=== PATIENT | female | born 1940 | race Two or more races ===

== ENCOUNTER → 2022-05-14 09:45 | Outpatient (BNVA) | payer OTHER, SELFPAY | PROVIDERS: PCP Internal Medicine; Visit Provider Internal Medicine Rheumatology | DX: M05.9 Rheumatoid arthritis with rheumatoid factor, unspecified (principal); M81.0 Age-related osteoporosis without current pathological fracture; J84.9 Interstitial pulmonary disease, unspecified; Z79.60 Long term (current) use of unspecified immunomodulators and immunosuppressants | CPT/HCPCS: 99212 ==

== ENCOUNTER 2022-05-14 11:25 | Outpatient (REF) | payer OTHER, SELFPAY ==
[2022-05-14 14:06] LABS: MANUAL DIFF FLAG NO
[2022-05-14 14:27] LABS: Basophils Percent Auto 0.2 % (0-2); Eosinophils Absolute Auto 0.1 X10*3/uL (0.0-0.4); Hemoglobin 11.2 g/dl (12.0-16.0); Imm Gran Abs Auto 0.01 X10*3/uL (0.00-0.03); Imm Gran Pct Auto 0.2 % (0.0-0.4); Lymphocytes Absolute Auto 0.7 X10*3/uL (1.2-4.9); Lymphocytes Percent Auto 17.7 % (20-40); Mean Corpuscular HGB Conc 31.1 g/dl (31.0-35.0); Mean Corpuscular Hemoglobin 29.6 pg (27.0-33.0); Mean Corpuscular Volume 95.2 fL (80.0-98.0); Monocytes Absolute Auto 0.3 X10*3/uL (0.1-1.2); Monocytes Percent Auto 6.6 % (2-11); Neutrophils Percent Auto 73.3 % (45-73); Platelet Count 306 X10*3/uL (160-400); Red Blood Count 3.78 X10*6/uL (4.20-5.50); Red Cell Distribution Width 12.8 % (11.0-16.0); White Blood Count 4.1 X10*3/uL (4.8-10.8)
[2022-05-14 14:55] LABS: Alanine Aminotransferase 10 U/L (0-31); Albumin Level 3.9 g/dL (3.5-5.0); Alkaline Phosphatase 57 U/L (39-117); Anion Gap 14 (12-20); Aspartate Amino Transferase 17 U/L (5-31); Bilirubin Total 0.3 mg/dL (0.0-1.0); Blood Urea Nitrogen 18 mg/dL (9-16); C Reactive Protein < 0.10 mg/dL (< or = 0.50); Calcium 9.5 mg/dL (8.4-10.2); Carbon Dioxide 27 mmol/L (22-29); Chloride 107 mmol/L (96-108); Estimated Glomerular Filt Rate 54; Glucose Random 84 mg/dL (60-115); Potassium 5.5 mmol/L (3.3-5.1); Sodium 142 mmol/L (135-145); Total Protein 7.1 g/dL (6.5-8.0)
[2022-05-14 15:06] LABS: Erythrocyte Sedimentation Rate 36 MM/HR (0-20)
[2022-05-17 12:04] LABS: TS Negative Control Passed; TS Panel A 0; TS Panel B 0; TS Positive Control Passed; TSpotTB Negative (Negative)
[2022-05-19 18:23] LABS: Vitamin D 25-OH, D2 <4 ng/mL; Vitamin D 25-OH, D3 37 ng/mL; Vitamin D 25-OH, Total 37 ng/mL (30-100)
== END 2022-05-14 11:26 | disposition home or self-care (01) ==
LOC: HO.10HDL 11:25
PROVIDERS: Visit Provider Internal Medicine Rheumatology
DX: M81.0 Age-related osteoporosis without current pathological fracture (principal); M05.9 Rheumatoid arthritis with rheumatoid factor, unspecified; J84.9 Interstitial pulmonary disease, unspecified; Z79.60 Long term (current) use of unspecified immunomodulators and immunosuppressants
CPT/HCPCS: 36415; 80053; 82306; 85025; 85652; 86140; 86481

== ENCOUNTER 2022-05-21 13:37 | Outpatient (REF) | payer OTHER, SELFPAY ==
--- NOTE | ~2022-05-21 | MM_ITS ---
EXAMINATION: BONE DENSITOMETRY CLINICAL INDICATION: Osteoporosis. COMPARISON: None (current study represents initial baseline exam). TECHNIQUE: Using a [employer] DXA System (software version: 13.1) manufactured by [employer], dual-energy x-ray absorptiometry was performed of the lumbar spine and left hip. The images are of good technical quality. Summary results are attached. FINDINGS: AP SPINE L1-L2 (excluding L3 and L4): The data of L1-L4 has been changed to exclude the L3 and L4 vertebral bodies, because degenerative changes at these levels may cause overestimation of lumbar spine density. BMD 0.937 g/cm2, Z-score 0.5, T-score -1.9, osteopenia. LEFT FEMUR, NECK: BMD 0.548 g/cm2, Z-score -0.9, T-score -3.5, osteoporosis. LEFT FEMUR, TOTAL: BMD 0.634 g/cm2, Z-score -0.5, T-score -3.0, osteoporosis. IDENTIFIED RISK FACTORS: Early menopause, height loss, hysterectomy, osteoporosis, rheumatoid arthritis, secondary osteoporosis. HISTORY OF FRACTURE: None listed. MEDICATIONS: Calcium, vitamin D. MM/XR DEXA axial skeleton IMPRESSION: 1. DIAGNOSIS: Osteoporosis based on the lowest T-score value of -3.5 in the lumbar spine applying World Health Organization criteria. 2. 10-YEAR FRACTURE RISK PREDICTION, FRAX: According to the guidelines, FRAX calculation should only be performed on patients in the osteopenia bone density category. Therefore, FRAX was not performed on this patient. 3. Treatment Recommendations: NOF guidelines recommend consideration for treatment in postmenopausal women and men age 50 and older presenting with the following: -A hip or vertebral (clinical or morphometric) fracture. -T-score less than or equal to -2.5 at the femoral neck or spine after appropriate evaluation to exclude secondary causes. -Low bone mass at the hip or spine and a 10-year fracture probability by FRAX of greater than or equal to 3% for hip fracture or greater than or equal to 20% for major osteoporotic fracture based on the [place] adapted WHO algorithm. 4. Other Recommendations: All treatment decisions require clinical judgment and consideration of individual patient factors, including patient preferences, comorbidities, previous drug use, risk factors not captured in the FRAX model (e.g. frailty, falls, vitamin D deficiency, increased bone turnover, interval significant decline in bone density) and possible under or overestimation of fracture risk by FRAX. Additional medical evaluation for secondary cause of low bone mineral density may be appropriate. FUTURE SCAN RECOMMENDATION: People with diagnosed cases of osteoporosis or at high risk for fracture should have regular bone mineral density tests. For patients eligible for Medicare, routine testing is allowed once every 2 years. The testing frequency can be increased to one year for patients who have rapidly progressing disease, those who are receiving or discontinuing medical therapy to restore bone mass, or have additional risk factors.
== END 2022-05-21 13:38 | disposition home or self-care (01) ==
LOC: HO.MAMMO 13:37
PROVIDERS: PCP Internal Medicine; Visit Provider Internal Medicine Rheumatology
DX: Z13.820 Encounter for screening for osteoporosis (principal); M05.9 Rheumatoid arthritis with rheumatoid factor, unspecified; M81.0 Age-related osteoporosis without current pathological fracture; Z78.0 Asymptomatic menopausal state
CPT/HCPCS: 77080

== ENCOUNTER 2022-06-29 11:13 | Outpatient (REF) | payer OTHER, SELFPAY ==
[2022-06-29 14:03] LABS: Anion Gap 14 (12-20); Blood Urea Nitrogen 21 mg/dL (9-16); Calcium 9.3 mg/dL (8.4-10.2); Carbon Dioxide 25 mmol/L (22-29); Chloride 105 mmol/L (96-108); Estimated Glomerular Filt Rate 51; Glucose Random 79 mg/dL (60-115); Sodium 139 mmol/L (135-145)
== END 2022-06-29 11:14 | disposition home or self-care (01) ==
LOC: HO.10HDL 11:13
PROVIDERS: Visit Provider Internal Medicine Rheumatology
DX: M81.0 Age-related osteoporosis without current pathological fracture (principal)
CPT/HCPCS: 36415; 80048

== ENCOUNTER → 2022-07-02 10:35 | Outpatient (BNVA) | payer OTHER, SELFPAY | PROVIDERS: PCP Internal Medicine; Visit Provider Internal Medicine Rheumatology | DX: M81.0 Age-related osteoporosis without current pathological fracture (principal) | CPT/HCPCS: 96372 ==

== ENCOUNTER → 2022-07-13 11:12 | Outpatient (BNVA) | payer OTHER, SELFPAY | PROVIDERS: PCP Internal Medicine; Visit Provider Internal Medicine Rheumatology | DX: M81.0 Age-related osteoporosis without current pathological fracture (principal); M05.9 Rheumatoid arthritis with rheumatoid factor, unspecified; J84.9 Interstitial pulmonary disease, unspecified; Z79.60 Long term (current) use of unspecified immunomodulators and immunosuppressants | CPT/HCPCS: 99212 ==

== ENCOUNTER 2022-11-25 10:36 | Outpatient (AMB) | payer OTHER, SELFPAY ==
--- NOTE | 2022-11-25 10:40 | MHC.OFFVIS ---
Intake Vital Signs 11/25/22 10:53 Height 4 ft 9 in Weight 102 lb 15.294 oz BMI 22.3 BP 120/70 Blood Pressure Location Lt brachial Position Sitting Pulse 81 Pulse Source Pulse Oximeter Temp 97.9 F Temp Source Skin Pulse Oximetry (%) 98 Oxygen Delivery Method Room Air Intake Visit Reasons: ra, op Intake Note: Here to follow up on RA. Calcium discontinued by PCP. Unsure why. Has some questions today. 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 Her nephew accompanies her; the who usually accompanies her has had worsening health with apparently vascular disease causing loss of vision in one eye and also loss of a toe. She has been working hard taking care of him as he is wheelchair-bound. Patient says she is doing okay. There is occasional left wrist pain on the ulnar aspect of the left wrist. This is usually worse with more physical activity. She does not seem to have other pains presently. She remains on Humir 40 mg once every 2 weeks. She is on ibuprofen idhp-nax-cagnapp 200 mg twice a day but was told to stop it because of abnormalities in kidney function. She tolerated the Prolia injection given for her osteoporosis last June so would be due again after January 01. She remains on vitamin-D. [facility] Medical History (Updated 07/13/22 @ 11:28 by JOSEP Hoffman) Cataract fragments in both eyes following surgery Hypertension ILD (interstitial lung disease) Mixed hyperlipidemia Senile osteoporosis Seropositive rheumatoid arthritis Surgical History H/O sigmoidoscopy H/O vaginal hysterectomy History of carpal tunnel release Hx of colonoscopy Family History Mother No problems noted. Father No problems noted. Social History Household Members: Spouse Alcohol intake: current Alcohol intake frequency: does not drink Patient Tobacco Use Status: Never used Tobacco Review of Systems Const Details: Negative for appetite change, weight change, fever, chills, malaise and fatigue Eyes Details: Negative for vision change, dry eyes,headaches and dizziness ENT Details: Negative for hearing change, tinnitus, oral ulcer, nose bleeds and oral dryness. Card Details: Negative chest pain, edema and syncope Resp Details: Negative for SOB, cough and wheezing GI Details: Negative indigestion/heartburn, nausea, abdominal pain, bowel changes, diarrhea, constipation and bloody stool. Narendra/Lymph Details: Negative for excessive bruising or bleeding. Physical Exam Vital Signs: Last Vital Signs Temp 97.9 F 11/25/22 10:53 Pulse 81 11/25/22 10:53 BP 120/70 11/25/22 10:53 Pulse Ox 98 11/25/22 10:53 Oxygen Delivery Method Room Air 11/25/22 10:53 BMI result Body Mass Index 22.3 APPEARANCE: Patient in no acute distress EYES no redness, pupils equal and reactive to light, eyelids normal EXTREMITIES: No edema, no calf tenderness, normal peripheral pulses. SKIN: No inflammatory or neoplastic lesions. Normal color and turgor JOINT EXAM: ?? LUNG:? Clear to percussion; there was some dry?inspiratory crackles heard at the left base.? EXTREMITIES:? No edema, no calf tenderness, normal peripheral pulses. JOINT EXAM:? Cervical Spine:? Lateral flexion limited at 15 in rotation at 45 degrees.? No pain with motion.? No tenderness. Thoracic Spine:.? No scoliosis.? No tenderness on palpation. Lumbar Spine:.? Alignment normal.? Full range of motion without pain, no tenderness. Chest Wall:.? No tenderness, swelling, increased warmth or erythema. Hands:? Right:? There is mild swelling across all of the MCP joints but none of them are tender.? There is a slight flexion deformity at the MCPs.? There is no flexor tendon triggering or tenderness.? There is significant boutonniere deformity at the thumb IP joint with some slight swelling but no tenderness.? There is some slight thickening and flexion deformity at the 2nd DIP.? Active extension at that joint does not seem to be possible.? There is no thenar atrophy or sensory loss.? Left:? There is mild swelling of the 1st 3 MCP joints.? The MCP joints are not tender today.? There is some degree of boutonniere deformity at the thumb IP without tenderness.? No flexor tendon triggering, thenar atrophy or sensory loss. Wrists:? Right:? Mild pain with flexion extension at 60 degrees with some slight tenderness.? Minimal soft tissue swelling.? Left:? Slight discomfort with flexion extension at 75 degrees with minimal tenderness on the ulnar aspect. There may be some slight thickening over the flexor carpi ulnaris tendon. No redness or warmth. Elbows:. Normal pain-free range of motion without tenderness, swelling, increased warmth or erythema. Shoulders:.?? Full range of motion without pain. No tenderness, weakness, swelling, increased warmth or erythema. Hips:.? Full range of motion without pain. Hip bursa:.? No tenderness. Knees:? Right:? Mild patellofemoral crepitus.? Normal pain-free range of motion.? She has slight medial tenderness but no redness or effusion.? Left:?? Normal pain-free range of motion with mild patellofemoral crepitus but no effusion or tenderness.? No soft tissue swelling, increased warmth or erythema.? Ankles:.? Normal pain-free range of motion without tenderness, swelling, increased warmth or erythema. Feet:.? Normal pain-free range of motion without tenderness, swelling, increased warmth or erythema. Tender points:? No tenderness to digital palpation at the occiput, trapezius, second rib, lateral epicondyle, knees, greater trochanter and gluteal area bilaterally. Results Reviewed Results Reviewed: Laboratory Tests 05/14/22 05/14/22 06/29/22 11:30 11:30 11:15 WBC 4.1 L Hgb 11.2 L ESR 36 H Creatinine 1.03 Lab work from [facility] February 2020: White count 3.9, hemoglobin 12.7 09/17/2021: White count 3.1, hemoglobin 12.1 11/02/2022: White count 4.2, hemoglobin 11.3, creatinine 1.0, estimated GFR 56, albumin 3.7, 25 hydroxy vitamin-D 46, calcium 9.0 Assessment & Plan Assessment & Plan (1) Long-term use of immunosuppressant medication: Code(s): Z79.60 - [employer] (current) use of unspecified immunomodulators and immunosuppressants (2) Senile osteoporosis: Comment: INTOLERANT OF Fosamax and Actonel: bone pain Miacalcin: nosebleeds and dizzyness On vitamin D supplements July 2018 DEXA showed slight improvement in the LS spine density and slight but not significant worsening at the hip. T-scores: -2.9 at hip, -1.2 at LS spine 2022 DEXA hip -3.0, LS spine -1.9, L fem neck -3.5 07/02/22: Prolia injection Code(s): M81.0 - Age-related osteoporosis without current pathological fracture (3) Seropositive rheumatoid arthritis: Comment: SERO POS ccp POSITIVE On methtrexate since 2005; Enbrel added 02/26; methotrexate stopped 12/28 due to leukopenia. Enbrel stopped 12/29 - remission. Enbrel restarted 05/30 for return of synovitis from RA Humira in place of Enbrel 08/07 Code(s): M05.9 - Rheumatoid arthritis with rheumatoid factor, unspecified Plan This patient with RA seems to have good control of active synovitis with Humira. There is some slight swelling in the MCP joints in the left wrist with minimal tenderness. The joints are nontender in the swelling is chronic. She has always had some degree of leukopenia. The last blood work at [facility] did suggest mild depression of her hemoglobin. We will recheck that again before she has her Prolia injection next month. Before that visit also we will recheck her kidney function and calcium levels. The vitamin-D was adequate. She will continue with the above dose of Humira and we will arrange for the Prolia injection after January 01 which would be a year 2nd injection. We will aim for follow-up in about 3 months. Orders: Orders Basic Metabolic Panel Today M05.9 - Rheumatoid arthritis with rheumatoid factor, unspecified, Z79.60 - [employer] (current) use of unspecified immunomodulators and immunosuppressants C Reactive Protein Today M05.9 - Rheumatoid arthritis with rheumatoid factor, unspecified, Z79.60 - [employer] (current) use of unspecified immunomodulators and immunosuppressants Complete Blood Count Auto Diff Today M05.9 - Rheumatoid arthritis with rheumatoid factor, unspecified, Z79.60 - [employer] (current) use of unspecified immunomodulators and immunosuppressants Erythrocyte Sedimentation Rate Today M05.9 - Rheumatoid arthritis with rheumatoid factor, unspecified, Z79.60 - [employer] (current) use of unspecified immunomodulators and immunosuppressants Coding Level of Care Code Est Pt Level 3 (27936) Diagnoses Long-term use of immunosuppressant medication Z79.60 Senile osteoporosis M81.0 Seropositive rheumatoid arthritis M05.9
[2022-11-25 10:53] VITALS: BP 120/70; PULSE 81; TEMP 36.6; O2SAT 98; BMI 22.3
== END 2022-11-25 11:34 | disposition home or self-care (01) ==
PROVIDERS: PCP Internal Medicine; Visit Provider Internal Medicine Rheumatology
DX: M05.79 Rheumatoid arthritis with rheumatoid factor of multiple sites without organ or systems involvement (principal); Z79.60 Long term (current) use of unspecified immunomodulators and immunosuppressants; M81.0 Age-related osteoporosis without current pathological fracture
CPT/HCPCS: 99213

== ENCOUNTER → 2022-11-25 10:36 | Outpatient (BNVA) | payer OTHER, SELFPAY | PROVIDERS: PCP Internal Medicine; Visit Provider Internal Medicine Rheumatology | DX: M05.9 Rheumatoid arthritis with rheumatoid factor, unspecified (principal); M81.0 Age-related osteoporosis without current pathological fracture; Z79.60 Long term (current) use of unspecified immunomodulators and immunosuppressants | CPT/HCPCS: 99212 ==

== ENCOUNTER 2022-12-29 11:51 | Outpatient (REF) | payer OTHER, SELFPAY | END 2022-12-29 11:52 | disposition home or self-care (01) | LOC: HO.10HDL 11:51 | PROVIDERS: Visit Provider Internal Medicine Rheumatology | DX: M05.9 Rheumatoid arthritis with rheumatoid factor, unspecified (principal); Z79.60 Long term (current) use of unspecified immunomodulators and immunosuppressants | CPT/HCPCS: 36415; 80048; 85025; 85652; 86140 ==

== ENCOUNTER 2023-01-06 08:49 | Outpatient (AMB) | payer OTHER, SELFPAY ==
--- NOTE | 2023-01-06 11:33 | AM.OFFVISNUR ---
Intake Vital Signs 01/06/23 11:34 BP 138/76 Blood Pressure Location Rt brachial Position Sitting Respiration 16 Pulse 77 Pulse Source Pulse Oximeter Intake Visit Reasons: Osteoporosis/prolia inj Accompanied by: Self / Same As Patient Allergies alendronate sodium [From Fosamax] Allergy (Intermediate, Verified 01/06/23 11:36) myalgia/joint pain pravastatin Allergy (Intermediate, Verified 01/06/23 11:36) back pain risedronate sodium [From Actonel] Allergy (Intermediate, Verified 01/06/23 11:36) myalgia/joint pain Medication List - Last Reconciled 01/06/23 by Hayley Golden RN adalimumab (Humira(CF) Pen) 40 mg (0.4 mL) subcut Q2W 56 days cholecalciferol (vitamin D3) 25 mcg PO DAILY denosumab 60 mg subcut [id number] lisinopril 15 mg PO DAILY polyethylene glycol 400 1% 1 drp ophthalmic (eye) DAILY PRN simvastatin 5 mg PO BEDTIME Nursing Note Patient here for continued Prolia therapy. Patient denied any new medications or allergies. Patient gave verbal consent to administer Prolia. I administered Prolia on left upper arm. Patient tolerated injection well. Office Meds Prolia 60 mg/mL subcutaneous syringe Performing Provider: Matt Reyez MD Performing Location[place] [facility] Administered by: Hayley Golden RN on 01/06/23 11:39 Dose Route Admin Location Dispensed Lot Number Expiration Date NDC [employer] 60 mg subcut left arm 1 mL [id number] 05/19/25 58031-587-35 AMGEN Coding Level of Care Code Procedure Only Assessment & Plan Assessment & Plan Orders: Orders AMB Denosumab Injection Patient Supplied Today M81.0 - Age-related osteoporosis without current pathological fracture
[2023-01-06 11:34] VITALS: BP 138/76; PULSE 77; RESP 16
== END 2023-01-06 09:52 | disposition home or self-care (01) ==
PROVIDERS: PCP Internal Medicine
DX: M81.0 Age-related osteoporosis without current pathological fracture (principal)

== ENCOUNTER → 2023-01-06 08:49 | Outpatient (BNVA) | payer OTHER, SELFPAY | PROVIDERS: PCP Internal Medicine | DX: M81.0 Age-related osteoporosis without current pathological fracture (principal) | CPT/HCPCS: 96372; J0897 ==

== ENCOUNTER 2023-02-23 09:14 | Outpatient (AMB) | payer OTHER, SELFPAY ==
[2023-02-23 09:19] VITALS: BP 124/72; PULSE 82; TEMP 36.1; O2SAT 97; BMI 22.3
--- NOTE | 2023-02-23 09:19 | MHC.OFFVIS ---
Intake Vital Signs 02/23/23 09:19 Height 4 ft 9 in Weight 103 lb 2.821 oz BMI 22.3 BP 124/72 Blood Pressure Location Lt brachial Position Sitting Pulse 82 Pulse Source Pulse Oximeter Temp 97 F Temp Source Skin Pulse Oximetry (%) 97 Oxygen Delivery Method Room Air Intake Visit Reasons: RA Intake Note: Patient presents today to follow up on RA. Last seen by Dr. Reyez on 11/25/22. 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 Accompanied by: Self / Same As Patient Allergies alendronate sodium [From Fosamax] Allergy (Intermediate, Verified 02/23/23 09:19) myalgia/joint pain pravastatin Allergy (Intermediate, Verified 02/23/23 09:19) back pain risedronate sodium [From Actonel] Allergy (Intermediate, Verified 02/23/23 09:19) myalgia/joint pain Medication List - Last Reconciled 02/23/23 by Matt Reyez MD adalimumab (Humira(CF) Pen) 40 mg (0.4 mL) subcut Q2W 56 days cholecalciferol (vitamin D3) 25 mcg PO DAILY denosumab 60 mg subcut [id number] lisinopril 15 mg PO DAILY polyethylene glycol 400 1% 1 drp ophthalmic (eye) DAILY PRN simvastatin 5 mg PO BEDTIME HPI HPI Comments History of Present Illness Details The patient returns with her niece for evaluation of her rheumatoid arthritis and osteoporosis. She relates that her , it sounds like from renal failure and associated vascular disease, at the end of December. She has been doing okay she says with the assistance of her niece and nephew. She remains on only ibuprofen at this point. Apparently she ran out of the Humira as there was a delivery problem. We are not exactly sure why that happened or what happened. She does not notice too much increase in symptoms although the hands and shoulders are painful at times. She has also been receiving every 6 months Prolia. She last got an injection in December. There were no side effects with that. She has remained on vitamin-D but was told to stop the ibuprofen and calcium by her primary care office. She has a history of ILD thought to be related to rheumatoid arthritis but denies any cough, exertional dyspnea or chest pain. A [facility] Medical History (Updated 02/22/23 @ 20:31 by Matt Reyez MD) Cataract fragments in both eyes following surgery Senile osteoporosis Seropositive rheumatoid arthritis Mixed hyperlipidemia ILD (interstitial lung disease) Hypertension Surgical History H/O sigmoidoscopy H/O vaginal hysterectomy Hx of colonoscopy History of carpal tunnel release Family History Mother No problems noted. Father No problems noted. Social History Household Members: Spouse Alcohol intake: current Alcohol intake frequency: does not drink Patient Tobacco Use Status: Never used Tobacco Review of Systems Const Details: Negative for appetite change, weight change, fever, chills, malaise and fatigue Eyes Details: Negative for vision change, dry eyes,headaches and dizziness ENT Details: Negative for hearing change, tinnitus, oral ulcer, nose bleeds and oral dryness. Card Details: Negative chest pain, edema and syncope Resp Details: Negative for SOB, cough and wheezing GI Details: Negative indigestion/heartburn, nausea, abdominal pain, bowel changes, diarrhea, constipation and bloody stool. Psych Details: Some grief with recent of her . Negative for anxiety, depression Narendra/Lymph Details: Negative for excessive bruising or bleeding. Physical Exam Vital Signs: Last Vital Signs Temp 97 F 02/23/23 09:19 Pulse 82 02/23/23 09:19 BP 124/72 02/23/23 09:19 Pulse Ox 97 02/23/23 09:19 Oxygen Delivery Method Room Air 02/23/23 09:19 BMI result Body Mass Index 22.3 APPEARANCE: Patient in no acute distress EYES no redness, pupils equal and reactive to light, eyelids normal THROAT: Oral mucosa moist, no ulcerations NECK: No thyromegaly or masses, no adenopathy, trachea midline. HEART: Regulrar rhythm, S1-S2 heard, no murmurs, rubs or gallops. LUNG: Clear to percussion; there are some dry, inspiratory crackles heard at the bases bilaterally. ABD: Normal bowel sounds, no organomegaly, masses or tenderness. EXTREMITIES: No edema, no calf tenderness, normal peripheral pulses. JOINT EXAM: Cervical Spine:? Lateral flexion limited at 15 in rotation at 45 degrees.? No pain with motion.? No tenderness. Thoracic Spine:.? No scoliosis.? No tenderness on palpation. Lumbar Spine:.? Alignment normal.? Full range of motion without pain, no tenderness. Chest Wall:.? No tenderness, swelling, increased warmth or erythema. Hands:? Right:? There is mild swelling across all of the MCP joints but none of them are tender.? There is a slight flexion deformity at the MCPs.? There is no flexor tendon triggering or tenderness.? There is significant boutonniere deformity at the thumb IP joint with some slight swelling but no tenderness.? There is some slight thickening and flexion deformity at the 2nd DIP.? Active extension at that joint does not seem to be possible.? There is no thenar atrophy or sensory loss.? Left:? There is mild swelling of the 1st 3 MCP joints.? The MCP joints are not tender today.? There is some degree of boutonniere deformity at the thumb IP without tenderness.? No flexor tendon triggering, thenar atrophy or sensory loss. Wrists:? Right:? Mild pain with flexion extension at 60 degrees with some slight tenderness.? Minimal soft tissue swelling.? Left:? Slight discomfort with flexion extension at 75 degrees with minimal tenderness on the ulnar aspect. There may be some slight thickening over the flexor carpi ulnaris tendon. No redness or warmth. Elbows:. Normal pain-free range of motion without tenderness, swelling, increased warmth or erythema. Shoulders:.?? Full range of motion without pain. No tenderness, weakness, swelling, increased warmth or erythema. Hips:.? Full range of motion without pain. Hip bursa:.? No tenderness. Knees:? Right:? Mild patellofemoral crepitus.? Normal pain-free range of motion.? She has slight medial tenderness but no redness or effusion.? Left:?? Normal pain-free range of motion with mild patellofemoral crepitus but no effusion or tenderness.? No soft tissue swelling, increased warmth or erythema.? Ankles:? Normal pain-free range of motion without tenderness, swelling, increased warmth or erythema. Feet:? Normal pain-free range of motion without tenderness, swelling, increased warmth or erythema. Tender points:? No tenderness to digital palpation at the occiput, trapezius, second rib, lateral epicondyle, knees, greater trochanter and gluteal area bilaterally. Results Reviewed Results Reviewed: Laboratory Tests 05/14/22 12/29/22 12/29/22 11:30 12:00 12:00 WBC 4.1 L Hgb 10.6 L ESR 44 H Creatinine 0.77 C-Reactive Protein < 0.10 25-OH Vitamin D Total 37 10/21/2022 lab work from [place]: White count 4.2, hemoglobin 11.3, creatinine 1.0, transaminases normal calcium 9.0, 25 hydroxy D 46. Assessment & Plan Assessment & Plan (1) Senile osteoporosis: Comment: INTOLERANT OF Fosamax and Actonel: bone pain Miacalcin: nosebleeds and dizzyness On vitamin D supplements July 2018 DEXA showed slight improvement in the LS spine density and slight but not significant worsening at the hip. T-scores: -2.9 at hip, -1.2 at LS spine 2022 DEXA hip -3.0, LS spine -1.9, L fem neck -3.5 07/02/22, 01/06/23 Prolia injections Code(s): M81.0 - Age-related osteoporosis without current pathological fracture (2) Long-term use of immunosuppressant medication: Code(s): Z79.60 - rn assessment (current) use of unspecified immunomodulators and immunosuppressants (3) ILD (interstitial lung disease): Comment: October 2016 PFT at [facility]: FEV1 99% normal, FVC 74% normal, TLC 80% normal, diffusing capacity 70% normal: Mild to moderate restrictive lung disease CT showed lower lobe interstitial changes and bronchiectasis repeat PFT 11/10: nl volumes; DLCO 74% Code(s): J84.9 - Interstitial pulmonary disease, unspecified (4) Seropositive rheumatoid arthritis: Comment: SERO POS ccp POSITIVE On methtrexate since 2005; Enbrel added 02/26; methotrexate stopped 12/28 due to leukopenia. Enbrel stopped 12/29 - remission. Enbrel restarted 05/30 for return of synovitis from RA Humira in place of Enbrel 08/07 Code(s): M05.9 - Rheumatoid arthritis with rheumatoid factor, unspecified Plan The patient's joints show some deformity and evidence of prior active RA. Presently the tenderness is minimal. She has been off the Humira now for almost 2 months. I still think she should go back on it given the prolonged course of synovitis she had in the past with now some flexion deformities. I will send in a new prescription to her pharmacy for the Humira. We will ask her to stop the ibuprofen given that she occasionally runs an elevated creatinine and at her age that could signify the beginning of some CKD. I think she should take acetaminophen if needed up to 1 g t.i.d. for pain. There is a history of ILD although she has some fine rales but no symptoms at present. The last PFTs from about a year and half ago looked okay with only a slight decrease in diffusion capacity. That might need to be repeated in in the next year. A for return visit is recommended for June when she would be due for her Prolia injection. The family is going away for May so will get lab work before she comes in at that point to assess her suitability for another Prolia injection and to assess her inflammatory markers. Orders: Orders Erythrocyte Sedimentation Rate Today M05.9 - Rheumatoid arthritis with rheumatoid factor, unspecified, M81.0 - Age-related osteoporosis without current pathological fracture C Reactive Protein Today M05.9 - Rheumatoid arthritis with rheumatoid factor, unspecified, M81.0 - Age-related osteoporosis without current pathological fracture Vitamin D 25-OH (D2 and D3) Today M05.9 - Rheumatoid arthritis with rheumatoid factor, unspecified, M81.0 - Age-related osteoporosis without current pathological fracture Basic Metabolic Panel Today M05.9 - Rheumatoid arthritis with rheumatoid factor, unspecified, M81.0 - Age-related osteoporosis without current pathological fracture Medications: Refilled adalimumab (Humira(CF) Pen) 40 mg (0.4 mL) subcut Q2W 1.6 ea 3RF 56 days M05.9 - Rheumatoid arthritis with rheumatoid factor, unspecified Coding Level of Care Code Est Pt Level 4 (66307) Diagnoses Senile osteoporosis M81.0 Long-term use of immunosuppressant medication Z79.60 ILD (interstitial lung disease) J84.9 Seropositive rheumatoid arthritis M05.9
== END 2023-02-23 10:02 | disposition home or self-care (01) ==
PROVIDERS: PCP Internal Medicine; Visit Provider Internal Medicine Rheumatology
DX: M05.79 Rheumatoid arthritis with rheumatoid factor of multiple sites without organ or systems involvement (principal); M81.0 Age-related osteoporosis without current pathological fracture; Z79.60 Long term (current) use of unspecified immunomodulators and immunosuppressants; J84.9 Interstitial pulmonary disease, unspecified
CPT/HCPCS: 99214

== ENCOUNTER → 2023-02-23 09:14 | Outpatient (BNVA) | payer OTHER, SELFPAY | PROVIDERS: PCP Internal Medicine; Visit Provider Internal Medicine Rheumatology | DX: M81.0 Age-related osteoporosis without current pathological fracture (principal); M05.9 Rheumatoid arthritis with rheumatoid factor, unspecified; J84.9 Interstitial pulmonary disease, unspecified; Z79.60 Long term (current) use of unspecified immunomodulators and immunosuppressants | CPT/HCPCS: 99212 ==

== ENCOUNTER 2023-07-01 11:40 | Outpatient (REF) | payer OTHER, SELFPAY ==
[2023-07-01 13:10] LABS: Anion Gap 12 (12-20); Blood Urea Nitrogen 9 mg/dL (9-16); C Reactive Protein < 0.04 mg/dL (< or = 0.50); Calcium 9.6 mg/dL (8.4-10.2); Carbon Dioxide 29 mmol/L (22-29); Chloride 103 mmol/L (96-108); Estimated Glomerular Filt Rate > 60; Glucose Random 83 mg/dL (60-115); Potassium 4.6 mmol/L (3.3-5.1); Sodium 139 mmol/L (135-145)
[2023-07-01 13:45] LABS: Erythrocyte Sedimentation Rate 36 MM/HR (0-20)
[2023-07-05 15:53] LABS: Vitamin D 25-OH, D2 <4 ng/mL; Vitamin D 25-OH, D3 30 ng/mL; Vitamin D 25-OH, Total 30 ng/mL (30-100)
== END 2023-07-01 11:41 | disposition home or self-care (01) ==
LOC: HO.LAB 11:40
PROVIDERS: PCP Internal Medicine; Visit Provider Internal Medicine Rheumatology
DX: M81.0 Age-related osteoporosis without current pathological fracture (principal); M05.9 Rheumatoid arthritis with rheumatoid factor, unspecified
CPT/HCPCS: 36415; 80048; 82306; 85652; 86140

== ENCOUNTER 2023-07-06 10:20 | Outpatient (AMB) | payer OTHER, SELFPAY ==
--- NOTE | 2023-07-06 10:27 | A.OFFVIS_ITS ---
Intake Vital Signs 07/06/23 10:28 Height 4 ft 9.4 in Weight 101 lb 6.602 oz BMI 21.6 BP 136/64 Blood Pressure Location Rt brachial Position Sitting Pulse 71 Pulse Source Pulse Oximeter Pulse Oximetry (%) 97 Oxygen Delivery Method Room Air Intake Visit Reasons: ra/ild/op with dr godoy/prolia Intake Note: Patient last seen by Dr Reyez on 02/23/23 presents today for follow up and Prolia injection. Pt was taking calcium and vit D in the past but ran out. Last prescribed by Dr Reyez. She bought Vit D OTC but unsure what calcium dose should be, would like to discuss. Agri Business Agent Required: No Accompanied by: Niece Maggie Allergies alendronate sodium [From Fosamax] Allergy (Intermediate, Verified 07/06/23 10:34) myalgia/joint pain pravastatin Allergy (Intermediate, Verified 07/06/23 10:34) back pain risedronate sodium [From Actonel] Allergy (Intermediate, Verified 07/06/23 10:34) myalgia/joint pain Medication List - Last Reconciled 07/06/23 by Tejal Blackman MD adalimumab (Humira(CF) Pen) 40 mg (0.4 mL) subcut Q2W 56 days calcium carbonate-vitamin D3 600 mg-10 mcg (400 unit) (Calcium with Vitamin D) 1 tab PO TID denosumab 60 mg subcut [id number] lisinopril 15 mg PO DAILY polyethylene glycol 400 1% 1 drp ophthalmic (eye) DAILY PRN simvastatin 5 mg PO BEDTIME HPI HPI Comments History of Present Illness Details 82-year-old female with seropositive def ormity RA/ILD returns for follow-up. She remains on Humira 40 mg every other week. She states that she has been doing fairly well overall. About the same. No changes. Continues to have intermittent pain in her hands, especially the right hand. Some right hand weakness. She denies any cough or shortness of breath. She has lost about 10 lb since some of her 6 months ago. She has been trying to drink more ensure Most recent history by Dr. Reyez 02/2023: The patient returns with her niece for evaluation of her rheumatoid arthritis and osteoporosis. She relates that her , it sounds like from renal failure and associated vascular disease, at the end of December. She has been doing okay she says with the assistance of her niece and nephew. She remains on only ibuprofen at this point. Apparently she ran out of the [facility] as there was a delivery problem. We are not exactly sure why that happened or what happened. She does not notice too much increase in symptoms although the hands and shoulders are painful at times. She has also been receiving every 6 months Prolia. She last got an injection in December. There were no side effects with that. She has remained on vitamin-D but was told to stop the ibuprofen and calcium by her primary care office. She has a history of ILD thought to be related to rheumatoid arthritis but denies any cough, exertional dyspnea or chest pain. A [facility] Medical History Cataract fragments in both eyes following surgery Senile osteoporosis Seropositive rheumatoid arthritis Mixed hyperlipidemia ILD (interstitial lung disease) Hypertension Surgical History H/O sigmoidoscopy H/O vaginal hysterectomy Hx of colonoscopy History of carpal tunnel release Family History Mother No problems noted. Father No problems noted. Social History Household Members: Spouse Alcohol intake: current Alcohol intake frequency: does not drink Patient Tobacco Use Status: Never used Tobacco Review of Systems Const Reports weight loss Musc Reports deformity and Reports arthralgias Physical Exam Vital Signs: Last Vital Signs Pulse 71 07/06/23 10:28 BP 136/64 07/06/23 10:28 Pulse Ox 97 07/06/23 10:28 Oxygen Delivery Method Room Air 07/06/23 10:28 BMI result Body Mass Index 21.6 Const General: cooperative, healthy appearing and comfortable Nutritional Appearance: average body habitus Orientation/consciousness: patient oriented x3 Limitations: no limitations HEENT Head: Yes normocephalic and Yes atraumatic Mouth: moist mucous membranes Resp Effort & Inspection: normal respiratory effort and able to speak in complete sentences Cardio Rate: regular rate Rhythm: regular rhythm Skin General skin exam: no rashes or lesions noted Neuro General: patient oriented x3 Extrem Other: Prominent RA deformities of both hands. Synovial thickening across the MCPs Soft soft tissue swelling on the palmar aspect of left thumb bilateral Z deformity of thumbs There does not seem to be any active synovitis Normal range of motion of shoulders without pain Normal range of motion of both knees without pain Assessment & Plan Assessment & Plan (1) Seropositive rheumatoid arthritis: Comment: SERO POS ccp POSITIVE On methtrexate since 2005; Enbrel added 02/26; methotrexate stopped 12/28 due to leukopenia. Enbrel stopped 12/29 - remission. Enbrel restarted 05/30 for return of synovitis from RA Humira in place of Enbrel 08/07 Code(s): M05.9 - Rheumatoid arthritis with rheumatoid factor, unspecified Plan: This is an 82-year-old female with seropositive deforming RA who presents for follow-up. This is her 1st visit with me. She used to follow-up with Dr. Reyez. Patient is doing well overall on Humira 40 mg every other week with no active synovitis Continue Humira 40 mg every other week Labs before next visit in 6 months (2) ILD (interstitial lung disease): Comment: October 2016 PFT at [facility]: FEV1 99% normal, FVC 74% normal, TLC 80% normal, diffusing capacity 70% normal: Mild to moderate restrictive lung disease CT showed lower lobe interstitial changes and bronchiectasis repeat PFT 11/10: nl volumes; DLCO 74% Code(s): J84.9 - Interstitial pulmonary disease, unspecified Plan: No cardiopulmonary thumbs recently. Will order PFTs to monitor her ILD (3) Senile osteoporosis: Comment: INTOLERANT OF Fosamax and Actonel: bone pain Miacalcin: nosebleeds and dizzyness On vitamin D supplements July 2018 DEXA showed slight improvement in the LS spine density and slight but not significant worsening at the hip. T-scores: -2.9 at hip, -1.2 at LS spine 2022 DEXA hip -3.0, LS spine -1.9, L fem neck -3.5 07/02/22, 01/06/23 Prolia injections Code(s): M81.0 - Age-related osteoporosis without current pathological fracture Plan: Patient will receive Prolia injection in the office today. Repeat Prolia injection 12/2023. Vitamin-D level is 30. Has been taking [id number] vitamin-D but does not know the dose. She also does not consume any dairy. 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 Panel 6 Months M05.9 - Rheumatoid arthritis with rheumatoid factor, unspecified, Z79.60 - marine oil terminal superintendent (current) use of unspecified immunomodulators and immunosuppressants Erythrocyte Sedimentation Rate 6 Months M05.9 - Rheumatoid arthritis with rheumatoid factor, unspecified, Z79.60 - [facility] (current) use of unspecified immunomodulators and immunosuppressants Hepatitis A,B,C Profile 6 Months Z11.59 - Encounter for screening for other viral diseases PFT pulmonary function test Today J84.9 - Interstitial pulmonary disease, unspecified Vitamin D 25-OH (D2 and D3) 6 Months E55.9 - Vitamin D deficiency, unspecified Complete Blood Count Auto Diff 6 Months M05.9 - Rheumatoid arthritis with rheumatoid factor, unspecified, Z79.60 - [facility] (current) use of unspecified immunomodulators and immunosuppressants C Reactive Protein 6 Months M05.9 - Rheumatoid arthritis with rheumatoid factor, unspecified, Z79.60 - [facility] (current) use of unspecified immunomodulators and immunosuppressants T Spot TB 6 Months Z11.7 - Encounter for testing for latent tuberculosis infection Medications: New calcium carbonate-vitamin D3 600 mg-10 mcg (400 unit) (Calcium with Vitamin D) 1 tab PO TID 90 tabs 5RF Refilled adalimumab (Humira(CF) Pen) 40 mg (0.4 mL) subcut Q2W 56 days 1.6 ea 3RF M05.9 - Rheumatoid arthritis with rheumatoid factor, unspecified Coding Level of Care Code Est Pt Level 5 (82948) Diagnoses Seropositive rheumatoid arthritis M05.9 ILD (interstitial lung disease) J84.9 Senile osteoporosis M81.0 Long-term use of immunosuppressant medication Z79.60
[2023-07-06 10:28] VITALS: BP 136/64; PULSE 71; O2SAT 97; BMI 21.6
== END 2023-07-06 11:17 | disposition home or self-care (01) ==
LOC: HO.RHE 10:20
PROVIDERS: PCP Internal Medicine; Visit Provider Student in an Organized Health Care Education/Training Program
DX: M05.79 Rheumatoid arthritis with rheumatoid factor of multiple sites without organ or systems involvement (principal); J84.9 Interstitial pulmonary disease, unspecified; M81.0 Age-related osteoporosis without current pathological fracture; Z79.60 Long term (current) use of unspecified immunomodulators and immunosuppressants
CPT/HCPCS: 99215

== ENCOUNTER → 2023-07-06 10:20 | Outpatient (BNVA) | payer OTHER, SELFPAY | PROVIDERS: PCP Internal Medicine; Visit Provider Student in an Organized Health Care Education/Training Program | DX: M81.0 Age-related osteoporosis without current pathological fracture (principal); M05.9 Rheumatoid arthritis with rheumatoid factor, unspecified; J84.9 Interstitial pulmonary disease, unspecified; Z79.60 Long term (current) use of unspecified immunomodulators and immunosuppressants | CPT/HCPCS: 96372; 99212; J0897 ==

== ENCOUNTER 2023-07-12 09:50 | Outpatient (REF) | payer OTHER, SELFPAY ==
[2023-07-12 08:36] VITALS: PULSE 71; RESP 16; O2SAT 98
--- NOTE | 2023-07-12 13:52 | PFT_ITS ---
Indication: Cough Spirometry [FEV1 to FVC 83%; FEV1 1.51 L; FVC 1.81 L. No significant response to bronchodilators noted. Maximum voluntary ventilation 95% predicted] Lung Volumes [Total lung capacity 114% predicted; residual volume 148% predicted] Diffusion Capacity [Diffuse capacity 78% predicted] Comparisons [None] Interpretation [No obstructive nor restrictive ventilatory defects identified. No significant response to bronchodilators noted. The patient does have evidence of air trapping. There is also a mild diffusion impairment. If asthma isn't a differential methacholine challenge may be helpful for assessing hyperreactive airways. Otherwise clinical correlation warranted.] MTDD
== END 2023-07-12 09:51 | disposition home or self-care (01) ==
LOC: HO.RESP 09:50
PROVIDERS: PCP Internal Medicine; Visit Provider Student in an Organized Health Care Education/Training Program
DX: J84.9 Interstitial pulmonary disease, unspecified (principal)
CPT/HCPCS: 94010; 94640; 94727; 94729

== ENCOUNTER → 2023-07-12 13:52 | Outpatient (BNV) | payer OTHER, SELFPAY | PROVIDERS: PCP Internal Medicine; Visit Provider Hospitalist | DX: J84.9 Interstitial pulmonary disease, unspecified (principal) | CPT/HCPCS: 94060; 94727; 94729 ==

== ENCOUNTER 2024-01-18 10:26 | Outpatient (REF) | payer OTHER, SELFPAY ==
[2024-01-18 10:53] LABS: MANUAL DIFF FLAG NO
[2024-01-18 11:04] LABS: Basophils Percent Auto 0.3 % (0-2); Eosinophils Absolute Auto 0.1 X10*3/uL (0.0-0.4); Hematocrit 35.5 % (37.0-47.0); Hemoglobin 11.5 g/dl (12.0-16.0); Imm Gran Abs Auto 0.01 X10*3/uL (0.00-0.03); Imm Gran Pct Auto 0.3 % (0.0-0.4); Lymphocytes Absolute Auto 1.1 X10*3/uL (1.2-4.9); Lymphocytes Percent Auto 27.2 % (20-40); Mean Corpuscular HGB Conc 32.4 g/dl (31.0-35.0); Mean Corpuscular Hemoglobin 29.3 pg (27.0-33.0); Mean Corpuscular Volume 90.3 fL (80.0-98.0); Mean Platelet Volume 8.9 fL (9.4-12.3); Monocytes Absolute Auto 0.3 X10*3/uL (0.1-1.2); Monocytes Percent Auto 7.4 % (2-11); Neutrophils Absolute Auto 2.4 x10*3/uL (2.0-8.3); Neutrophils Percent Auto 61.8 % (45-73); Platelet Count 302 X10*3/uL (160-400); Red Blood Count 3.93 X10*6/uL (4.20-5.50); Red Cell Distribution Width 12.8 % (11.0-16.0); White Blood Count 3.9 X10*3/uL (4.8-10.8)
[2024-01-18 11:49] LABS: Alanine Aminotransferase 12 U/L (0-31); Albumin Level 4.1 g/dL (3.5-5.0); Alkaline Phosphatase 58 U/L (39-117); Anion Gap 12 (12-20); Aspartate Amino Transferase 21 U/L (5-31); Bilirubin Total 0.3 mg/dL (0.0-1.0); Blood Urea Nitrogen 17 mg/dL (9-16); C Reactive Protein < 0.10 mg/dL (< or = 0.50); Calcium 9.9 mg/dL (8.4-10.2); Carbon Dioxide 27 mmol/L (22-29); Chloride 104 mmol/L (96-108); Estimated Glomerular Filt Rate 45; Glucose Random 83 mg/dL (60-115); Potassium 4.2 mmol/L (3.3-5.1); Sodium 139 mmol/L (135-145)
[2024-01-18 11:51] LABS: Erythrocyte Sedimentation Rate 39 MM/HR (0-20)
[2024-01-18 11:52] LABS: HBc Num1 6.56 S/CO (0.00-0.79); HBsAGNum1 0.35 S/CO (0.00-0.99); Hepatitis A Antibody IgM 0.34 Index (0-0.79); Hepatitis B Surface Antigen Negative (Negative); ~HepC Num1 0.14 S/CO (0.00-0.79); ~Hepatitis A Antibody IgM Nonreactive (Nonreactive); ~Hepatitis B Surface Antibody NONREACTIVE (Nonreactive); ~Hepatitis C Antibody Nonreactive (Nonreactive)
[2024-01-18 14:10] LABS: HBc Num2 6.61 S/CO; HBc Num3 6.36 S/CO; Hepatitis B Core Antibody Reactive (Nonreactive)
[2024-01-20 14:53] LABS: Hepatitis B Core Antibody IgM NON-REACTIVE (NON-REACTIVE)
[2024-01-22 00:24] LABS: TS Negative Control Passed; TS Panel A 0; TS Panel B 0; TS Positive Control Passed; TSpotTB Negative (Negative)
[2024-01-22 16:38] LABS: Vitamin D 25-OH, D2 <4 ng/mL; Vitamin D 25-OH, D3 27 ng/mL; Vitamin D 25-OH, Total 27 ng/mL (30-100)
== END 2024-01-18 10:27 | disposition home or self-care (01) ==
LOC: HO.10HDL 10:26
PROVIDERS: Visit Provider Student in an Organized Health Care Education/Training Program
DX: Z11.7 Encounter for testing for latent tuberculosis infection (principal); Z11.59 Encounter for screening for other viral diseases; E55.9 Vitamin D deficiency, unspecified; M05.9 Rheumatoid arthritis with rheumatoid factor, unspecified; Z79.60 Long term (current) use of unspecified immunomodulators and immunosuppressants; Z72.89 Other problems related to lifestyle
CPT/HCPCS: 36415; 80053; 82306; 85025; 85652; 86140; 86481; 86704; 86705; 86706; 86709; 86803; 87340

== ENCOUNTER 2024-01-24 14:21 | Outpatient (AMB) | payer OTHER, SELFPAY ==
--- NOTE | 2024-01-24 14:24 | A.OFFVIS_ITS ---
Vital Signs 01/24/24 14:35 Height 4 ft 9.4 in Weight 107 lb 5.842 oz BMI 22.9 BP 128/68 Blood Pressure Location Rt brachial Position Sitting Pulse 66 Pulse Source Pulse Oximeter Pulse Oximetry (%) 100 Oxygen Delivery Method Room Air Intake Visit Reasons: RA ILD/prolia/CM Intake Note: Patient presents forr RA ILD follow up and Prolia injection. Allergies alendronate sodium [From Fosamax] Allergy (Intermediate, Verified 01/24/24 14:36) myalgia/joint pain pravastatin Allergy (Intermediate, Verified 01/24/24 14:36) back pain risedronate sodium [From Actonel] Allergy (Intermediate, Verified 01/24/24 14:36) myalgia/joint pain HPI Comments Details: 83-year-old female with seropositive deforming RA/ILD returns for follow-up. She remains on Humira 40 mg every other week. She states that she has been doing fairly well overall. About the same. No changes. She has gained 6-7 lb over the last few months she has been eating a little more. Most recent history by Dr. Reyez 02/2023: The patient returns with her niece for evaluation of her rheumatoid arthritis and osteoporosis. She relates that her , it sounds like from renal failure and associated vascular disease, at the end of December. She has been doing okay she says with the assistance of her niece and nephew. She remains on only ibuprofen at this point. Apparently she ran out of the Humira as there was a delivery problem. We are not exactly sure why that happened or what happened. She does not notice too much increase in symptoms although the hands and shoulders are painful at times. She has also been receiving every 6 months Prolia. She last got an injection in December. There were no side effects with that. She has remained on vitamin-D but was told to stop the ibuprofen and calcium by her primary care office. She has a history of ILD thought to be related to rheumatoid arthritis but denies any cough, exertional dyspnea or chest pain. A [facility] Medical History Cataract fragments in both eyes following surgery Senile osteoporosis Seropositive rheumatoid arthritis Mixed hyperlipidemia ILD (interstitial lung disease) Hypertension Surgical History H/O sigmoidoscopy H/O vaginal hysterectomy Hx of colonoscopy History of carpal tunnel release Family History Mother No problems noted. Father No problems noted. Social History Household Members: Spouse Alcohol intake: current Alcohol intake frequency: does not drink Patient Tobacco Use Status: Never used Tobacco Review of Systems Const Reports weight gain (Intentional) Musc Reports deformity, Denies arthralgias, Denies joint swelling and Denies stiffness Physical Exam Vital Signs: Last Vital Signs Pulse 66 01/24/24 14:35 BP 128/68 01/24/24 14:35 Pulse Ox 100 01/24/24 14:35 Oxygen Delivery Method Room Air 01/24/24 14:35 BMI result Body Mass Index 22.9 Const General: cooperative, healthy appearing and comfortable Nutritional Appearance: average body habitus Orientation/consciousness: patient oriented x3 Limitations: no limitations HEENT Head: Yes normocephalic and Yes atraumatic Mouth: moist mucous membranes Resp Effort & Inspection: normal respiratory effort and able to speak in complete sentences Cardio Rate: regular rate Rhythm: regular rhythm Skin General skin exam: no rashes or lesions noted Neuro General: patient oriented x3 Extrem Other: Prominent RA deformities of both hands. Synovial thickening across the MCPs Soft soft tissue swelling on the palmar aspect of left thumb bilateral Z deformity of thumbs There does not seem to be any active synovitis Normal range of motion of shoulders without pain Normal range of motion of both knees without pain Office Meds Prolia 60 mg/mL subcutaneous syringe Performing Provider: Tejla Blackman MD Performing Location: [facility] Administered by: Tejal Blackman MD on 01/24/24 15:02 Dose Route Admin Location Dispensed Lot Number Expiration Date [facility] Sewing Trimmer 60 mg subcut LT deltoid 1 mL [id number] 02/18/26 77458-195-65 [facility] Assessment & Plan Assessment & Plan (1) Seropositive rheumatoid arthritis: Comment: SERO POS ccp POSITIVE On methtrexate since 2005; Enbrel added 02/26; methotrexate stopped 12/28 due to leukopenia. Enbrel stopped 12/29 - remission. Enbrel restarted 05/30 for return of synovitis from RA Humira in place of Enbrel 5/19 Code(s): M05.9 - Rheumatoid arthritis with rheumatoid factor, unspecified Category: Medical Plan: This is an 83-year-old female with seropositive deforming RA who presents for follow-up. Patient is doing well overall on Humira 40 mg every other week with no active synovitis Continue Humira 40 mg every other week Labs before next visit in 6 months (2) ILD (interstitial lung disease): Comment: October 2016 PFT at [facility]: FEV1 99% normal, FVC 74% normal, TLC 80% normal, diffusing capacity 70% normal: Mild to moderate restrictive lung disease CT showed lower lobe interstitial changes and bronchiectasis repeat PFT 11/10: nl volumes; DLCO 74%. Repeat PFTs 06/2023. nl volumes with DLCO 78% Code(s): J84.9 - Interstitial pulmonary disease, unspecified Category: Medical Plan: No cardiopulmonary symptoms currently (3) Senile osteoporosis: Comment: INTOLERANT OF Fosamax and Actonel: bone pain Miacalcin: nosebleeds and dizzyness On vitamin D supplements July 2018 DEXA showed slight improvement in the LS spine density and slight but not significant worsening at the hip. T-scores: -2.9 at hip, -1.2 at LS spine 2022 DEXA hip -3.0, LS spine -1.9, L fem neck -3.5 07/02/22, Prolia started Code(s): M81.0 - Age-related osteoporosis without current pathological fracture Category: Medical Plan: No recent falls or fractures. Patient received Prolia injection in clinic today. Vitamin-D level remains slightly low. I do not think patient is taking it as prescribed. Increase vitamin-D supplementation to 5000 units daily. Discussed with patient that she needs about 1200 mg of elemental calcium daily. Patient will go to the pharmacy and pick it up Check vitamin-D level before next visit Repeat DEXA 06/2024 (4) Long-term use of immunosuppressant medication: Code(s): Z79.60 - group home (current) use of unspecified immunomodulators and immunosuppressants Category: Medical Plan: Hold Humira for any signs of fever or infection Plan I spent 35 minutes reviewing patient's chart, evaluating patient, ordering diagnostic workup, counseling patient and documenting in the chart Orders: Orders AMB Denosumab Injection Patient Supplied Today M81.0 - Age-related osteoporosis without current pathological fracture Comprehensive Met. Panel 6 Months M05.9 - Rheumatoid arthritis with rheumatoid factor, unspecified C Reactive Protein 6 Months M05.9 - Rheumatoid arthritis with rheumatoid factor, unspecified Erythrocyte Sedimentation Rate 6 Months M05.9 - Rheumatoid arthritis with rheumatoid factor, unspecified Complete Blood Count Auto Diff 6 Months M05.9 - Rheumatoid arthritis with rheumatoid factor, unspecified Vitamin D 25-OH (D2 and D3) 6 Months E55.9 - Vitamin D deficiency, unspecified XR DEXA axial skeleton 06/20/24 M81.0 - Age-related osteoporosis without current pathological fracture Medications: New cholecalciferol (vitamin D3) 125 mcg PO DAILY 90 tabs 1RF Coding Level of Care Code Est Pt Level 4 (66996) Complex EM visit Add On G2211 Diagnoses Seropositive rheumatoid arthritis M05.9 ILD (interstitial lung disease) J84.9 Senile osteoporosis M81.0 Long-term use of immunosuppressant medication Z79.60
[2024-01-24 14:35] VITALS: BP 128/68; PULSE 66; O2SAT 100; BMI 22.9
== END 2024-01-24 15:04 | disposition home or self-care (01) ==
LOC: HO.RHE 14:21
PROVIDERS: PCP Internal Medicine; Visit Provider Student in an Organized Health Care Education/Training Program
DX: M05.79 Rheumatoid arthritis with rheumatoid factor of multiple sites without organ or systems involvement (principal); J84.9 Interstitial pulmonary disease, unspecified; M81.0 Age-related osteoporosis without current pathological fracture; Z79.60 Long term (current) use of unspecified immunomodulators and immunosuppressants
CPT/HCPCS: 99214

== ENCOUNTER → 2024-01-24 14:21 | Outpatient (BNVA) | payer OTHER, SELFPAY | PROVIDERS: PCP Internal Medicine; Visit Provider Student in an Organized Health Care Education/Training Program | DX: M05.9 Rheumatoid arthritis with rheumatoid factor, unspecified (principal); M81.0 Age-related osteoporosis without current pathological fracture; E55.9 Vitamin D deficiency, unspecified; J84.9 Interstitial pulmonary disease, unspecified; Z79.60 Long term (current) use of unspecified immunomodulators and immunosuppressants; Z79.899 Other long term (current) drug therapy | CPT/HCPCS: 96372; 99212; J0897 ==

== ENCOUNTER 2024-07-21 11:09 | Outpatient (REF) | payer OTHER, SELFPAY ==
[2024-07-21 11:42] LABS: MANUAL DIFF FLAG NO
[2024-07-21 11:53] LABS: Basophils Percent Auto 0.5 % (0-2); Eosinophils Absolute Auto 0.2 X10*3/uL (0.0-0.4); Eosinophils Percent Auto 3.6 % (0-4); Hematocrit 35.1 % (37.0-47.0); Hemoglobin 11.2 g/dl (12.0-16.0); Imm Gran Abs Auto 0.01 X10*3/uL (0.00-0.03); Imm Gran Pct Auto 0.2 % (0.0-0.4); Lymphocytes Absolute Auto 1.5 X10*3/uL (1.2-4.9); Lymphocytes Percent Auto 35.3 % (20-40); Mean Corpuscular HGB Conc 31.9 g/dl (31.0-35.0); Mean Corpuscular Hemoglobin 29.6 pg (27.0-33.0); Mean Corpuscular Volume 92.9 fL (80.0-98.0); Mean Platelet Volume 9.3 fL (9.4-12.3); Monocytes Absolute Auto 0.4 X10*3/uL (0.1-1.2); Monocytes Percent Auto 8.6 % (2-11); Neutrophils Absolute Auto 2.2 x10*3/uL (2.0-8.3); Neutrophils Percent Auto 51.8 % (45-73); Platelet Count 297 X10*3/uL (160-400); Red Blood Count 3.78 X10*6/uL (4.20-5.50); Red Cell Distribution Width 12.7 % (11.0-16.0); White Blood Count 4.2 X10*3/uL (4.8-10.8)
--- OUTSIDE RECORDS SUMMARY | 2024-07-21 12:12 | XMS_ITS | Encounter Summary ---
Author Organization [facility] Address [address] [place] [address] Care Team Providers Care Research Manufacturing Operator Name Role Phone Tenzin Zuluaga MD Primary Care Provider + [phone] Garcia Almeida MD Primary Care [facility] Racquel Cavanaugh MD Primary Care Provider [phone] [facility] Primary Care Provider [facility] Encounter Details Date Type Department Care Team Description 09/19/2009 Operations Welder Report Medical Records [address] [place] [id number] Carlos Wyatt MD Social History Tobacco Use Types Packs/Day Years Used Date Smoking Tobacco: Never Alcohol Use Standard Drinks/Week Comments Not Asked 0 (1 standard drink = 0.6 oz pur e alcohol) Sex Assigned at Date Recorded Female 10/20/2021 10:22 AM EDT Job Start Date Occupation Industry Not on file Not on file Not on file documented as of this encounter Plan of Treatment Not on file documented as of this encounter Visit Diagnoses Not on filedocumented in this encounter Care Teams Research Manufacturing Operator Relationship Specialty Start Date End Date Tenzin Zuluaga MD [address] [place] [address] PCP - General 03/06/03 06/30/20 Garcia Almeida MD [address] [place] [address] PCP - General Internal Medicine 07/01/20 02/04/21 Racquel Cavanaugh MD [address] [place] [address] PCP - General Internal Medicine 02/05/21 10/21/23 [facility], Pcp [address] [place] [phone] PCP - General Internal Medicine 10/22/23 documented as of this encounter
--- OUTSIDE RECORDS SUMMARY | 2024-07-21 12:12 | XMS_ITS | Encounter Summary ---
Author Organization [facility] Address [address] [place] [address] Care Team Providers Care Drop Tester Name Role Phone Tenzin Zuluaga MD Primary Care Provider + [phone] Garcia Almeida MD Primary Care Provider [facility] Racquel Cavanaugh MD Primary Care Provider [phone] [facility] Primary Care Provider [facility] Encounter Details Date Type Department Care Team Description 12/05/2012 Preschool Associate Teacher Report Medical Records [address] [place] [address] Brayan Miles MD Social History Tobacco Use Types Packs/Day Years Used Date Smoking Tobacco: Never Smokeless Tobacco: Never Alcohol Use Standard Drinks/Week Comments [...] on filedocumented in this encounter Care Teams Drop Tester Relationship Specialty Start Date End Date Tenzin Zuluaga MD [address] [place] [phone] PCP - General 03/06/03 06/30/20 Garcia Almeida MD [address] [place] [phone] PCP - General Internal Medicine 07/01/20 02/04/21 Racquel Cavanaugh MD [address] [place] [phone] PCP - General Internal Medicine 02/05/21 10/21/23 [facility], Pcp [address] [place] [phone] PCP - General Internal Medicine 10/22/23 documented as of this encounter
--- OUTSIDE RECORDS SUMMARY | 2024-07-21 12:12 | XMS_ITS | Encounter Summary ---
[facility] Address [address] [place] [address] Care Team Providers Care Press Tender Smoke Signal Name Role Phone Tenzin Zuluaga MD Primary Care Provider + [phone] Garcia Almeida MD Primary Care Provider [facility] Racquel Cavanaugh MD Primary Care Provider [phone] [facility] Primary Care Provider [facility] Encounter Details Date Type Department Care Team Description 12/08/2016 Karate Black Belt Report Medical Records [address] [place] [address] Lana Christopher NP Social History Tobacco Use Types Packs/Day Years [...] on filedocumented in this encounter Care Teams Press Tender Smoke Signal Relationship Specialty Start Date End Date Tenzin Zuluaga MD [address] [place] [address] PCP - General 03/06/03 06/30/20 Garcia Almeida MD [address] [place] [address] 478[address] PCP - General Internal Medicine 07/01/20 02/04/21 Racquel Cavanaugh MD [address] [place] [address] 99972 PCP - General Internal Medicine 02/05/21 10/21/23 [facility], Pcp [address] [place] [address] [phone] PCP - General Internal Medicine 10/22/23 documented as of this encounter
--- OUTSIDE RECORDS SUMMARY | 2024-07-21 12:12 | XMS_ITS | Encounter Summary ---
[facility] Organization [facility] Address [address] [place] [address] Care Team Providers Care Nursing Program Manager Name Role Phone Tenzin Zuluaga MD Primary Care Provider + [phone] Garcia Almeida MD Primary Care Provider [facility] Racquel Cavanaugh MD Primary Care Provider [phone] [facility] Primary Care Provider [facility] Encounter Details Date Type Department Care Team Description 09/07/2016 Release of Information Medical Records [address] [place] [id number] Abstract, Provider Social History Tobacco Use Types Packs/Day Years [...] on filedocumented in this encounter Care Teams Nursing Program Manager Relationship Specialty Start Date End Date Tenzin Zuluaga MD [address] [place] [address] PCP - General 03/06/03 06/30/20 Garcia Almeida MD [address] [place] [address] PCP - General Internal Medicine 07/01/20 02/04/21 Racquel Cavanaugh MD [address] [place] [address] PCP - General Internal Medicine 02/05/21 10/21/23 [facility], Pcp [address] [place] [address] PCP - General Internal Medicine 10/22/23 documented as of this encounter
--- OUTSIDE RECORDS SUMMARY | 2024-07-21 12:12 | XMS_ITS | Encounter Summary ---
[facility] Organization [facility] Address [address] [place] [address] Care Team Providers Care Senior Data Warehouse Developer Name Role Phone Tenzin Zuluaga MD Primary Care Provider [phone] Garcia Almeida MD Primary Care Provider Unavailab Racquel Beal MD Primary Care Provider [phone] [facility] Primary Care Provider [facility] Encounter Details Date Type Department Care Team Description 12/11/2019 Pt. Non Urgent Medical Question Adult Medicine [address] [phone] Jorje Steel PA-C [address] [place] [id number] Social History Tobacco Use Types Packs/Day Years Used Date Smoking Tobacco: Never Smokeless Tobacco: Never Alcohol Use Standard Drinks/Week Comments Not Asked 0 (1 standard drink = 0.6 oz pur e alcohol) Sex Assigned at Date Recorded Female 10/20/2021 10:22 AM EDT Job Start Date Occupation Industry Not on file Not on file Not on file COVID-19 Exposure Response Date Recorded In the last month, have you been in contact with someone who was confirmed or suspected to have Coronavirus / COVID-19? Unable to assess 12/08/2019 11:05 AM EDT documented as of this encounter Miscellaneous Notes * Telephone Encounter - Justine Mathews M.A. - 12/11/2019 10:43 AM EDTFrom: Yg Claire To: Jorje Steel PA-C Sent: 12/11/2019 10:32 AM EDT Subject: Bill from [facility] for 10/04/2019 visit. Sreekanth Mtz, I received a bill from [facility] for $104.08 for my last visit. I do not understand why my Gray and I have been seeing you the past several years and never received a bill for it. [place] and got cut off twi ce trying to talk to those people. [facility] said that you are an out of system provider or something like that. Still cannot get thru to the [facility] billing headquarters. They keep cutting me off like they don't want to hear about theproblem. Would like some help from [facility] on this. Yg Claire documented in this encounter Plan of Treatment Not on file documented as of this encounter Visit Diagnoses Not on filedocumented in this encounter Care Teams Senior Data Warehouse Developer Relationship Specialty Start Date End Date Tenzin Zuluaga MD [address] [place] [phone] PCP - General 03/06/03 06/30/20 Garcia Almeida MD [address] [place] [address] 12950 PCP - General Internal Medicine 07/01/20 02/04/21 Racquel Cavanaugh MD [address] [place] [address] 12989 PCP - General Internal Medicine 02/05/21 10/21/23 [facility], [address] [address] PCP - General Internal Medicine 10/22/23 documented as of this encounter
--- OUTSIDE RECORDS SUMMARY | 2024-07-21 12:12 | XMS_ITS | Encounter Summary ---
[facility] Organization [facility] Address [address] [place] [address] Care Team Providers Care Assistant Plant Control Operator Name Role Phone Racquel Cavanaugh MD Primary Care Provider [facility]cp Primary Care Provider Unavailabl e Reason for Visit * Reason Comments E-prescribe Rx Request Encounter Details Date Type Department Care Team Description 02/24/[address] [facility] [address] [place] [phone] Lore Duarte PA-C [address] [place] [address] [phone] E-prescribe Rx Request Social History Tobacco Use Types Packs/Day Years Used Date Smoking Tobacco: Never Smokeless Tobacco: Never Alcohol Use Standard Drinks/Week Comments Not Asked 0 (1 standard drink = 0.6 oz pur e alcohol) Sex Assigned at Date Recorded Female 10/20/2021 10:22 AM EDT Job Start Date Occupation Industry Not on file Not on file Not on file documented as of this encounter Miscellaneous Notes * Telephone Encounter - Amy Chew M.A. - 02/25/2023 1:26 PM EST Last office visit 11/02/22 Next office visit 05/05/23 with PCP Lab Results Component Value Date NA 137 11/02/2022 K 4.7 11/02/2022 CO2 27 11/02/2022 CL 106 11/02/2022 BUN 17 11/02/2022 CREAT 1.00 11/02/2022 GLU 82 11/02/2022 CA 9.0 11/02/2022 GFR 56 11/02/2022 Lab Results Component Value Date CHOL 185 05/04/2022 LDL 88 05/04/2022 HDL 83 05/04/2022 TRIG 71 05/04/2022 SGOT 19 11/02/2022 SGPT 15 11/02/2022 * Telephone Encounter - Vane Guadalupe - 02/25/2023 12:27 PM EST Patient would like script to be: E-PRESCRIBED/FAXED TO PHARMACY WHEN WAS THE PATIENT'S LAST APPOINTMENT IN ADULT MEDICINE? 11/02/22 WHEN WAS THE LAST TIME THE PATIENT SAW THEIR PCP? 05/04/22 Does patient have an upcoming appointment? Yes 05/05/23 pcp (THE MEDICATION REQUESTED IS ON THE MED LIST ABOVE) All of the medications requested were on the CURRENT MEDS list Did you check the Pharmacy information above?: YES Patient wants: 90 -day supply Is this a mail order prescription request ? YES If the refill is from a FAXED refill request what is the RX # listed on the fax? N/A Patients current insurance carrier is: Payor: [place] [employer] / Plan: POS $0 [place] [id number] /Product Type: POS [id number] documented in this encounter Plan of Treatment Not on file documented as of this encounter Visit Diagnoses Not on filedocumented in this encounter Care Teams Assistant Plant Control Operator Relationship Specialty Start Date End Date Racquel Cavanaugh MD [address] [place] [phone] PCP - General Internal Medicine 02/05/21 10/21/23 [facility] Pcp [address] [place] [address] PCP - General Internal Medicine 10/22/23 documented as of this encounter
--- OUTSIDE RECORDS SUMMARY | 2024-07-21 12:12 | XMS_ITS | Encounter Summary ---
Author Organization [facility] Address [address] [place] [address] Care Team Providers Care Fork Operator Name Role Phone Racquel Cavanaugh MD Primary Care Provider Counts Include [address], Pcp Primary Care Provider Unavailabl e Reason for Visit * Reason Onset Date Comments URI Symptoms 08/07/2021 Exposure Infectious Disease 08/07/2021 Encounter Details Date Type Department Care Team Description 08/07/2021 Telephone Adult Medicine [address] [phone] Racquel Cavanaugh MD [address] [place] [address] [phone] URI Symptoms; Exposure Infectious Disease Social History Tobacco Use Types Packs/Day Years [...] encounter Miscellaneous Notes * Telephone Encounter - Joanie Terry R.N. - 08/07/2021 10:42 AM EDT Pt has had Cold symptoms and congestion for 2 Days, Pt is tested positive x 2 , she tested positive for covid yesterday, No chest wall pain with deep breath and cough, denies SOB ( has no COPD/ asthma or any respiratory condition ) , able to speak in full sentences and has no audible wheezing, cough is non productive for Sputum, denies fever, able to take PO with no difficulty, denies N/V/D, Advised home care following the Cough/ breathing problems Protocol. RN reinforced telephone consultation and advice. Reviewed with the patient the signs and symptoms to watch for that would require immediate attention. If symptoms change, worsen or increase in intensity, to call back immediately. Appointment not needed . Pt to use home care instructions per CDC and will call if develops new or worsening symptoms Pt advised to go on [place] and determine if she is eligible for paxlovid * Telephone Encounter - Carrillo Coyle - 08/07/2021 10:33 AM EDT Symptoms patient is presenting: The patient's (on verbal release) states that the patient recently tested positive for COVID and she has since been experiencing cold symptoms For ALL patients calling to schedule any appointment (routine, sick visit, follow up, consult, etc.) in the outpatient setting please ask the following questions: ?? Do you have fever of higher than 101, sore throat with difficulty swallowing or severe shortnessof breath? NO If YES to any of these above symptoms, send a message to triage and do not book. Red dot. If no, an audio or video visit should be booked. ?? Have you had close contact with someone with Coronavirus in the last 14 days? YES ?? Have you traveled abroad? NO ?? Have you traveled recently to another state outside of [place], [place], [place], [place], [place], [place], [place]? NO o If yes, did you quarantine for 14 days or have a negative covid test? NO If yes to any of the above, patient is not to be scheduled in office until after 14 day quarantine or negative covid test. If pain or injury related was it due to an accident at work or from a motor vehicle accident? NO If yes, gather 3rd green party insurance information Date of accident/Injury: How long has patient had these symptoms?: Two days PCP: Racquel Cavanaugh Payor: [employer]AN / [id number] / Product Type: POS [id number] documented in this encounter Plan of Treatment Not on file documented as of this encounter Visit Diagnoses Not on filedocumented in this encounter Care Teams Fork Operator Relationship Specialty Start Date End Date Racquel Cavanaugh MD [address] [place] [address] PCP - General Internal Medicine 02/05/21 10/21/23 Counts Include [address], [address] [address] PCP - General Internal Medicine 10/22/23 documented as of this encounter
--- OUTSIDE RECORDS SUMMARY | 2024-07-21 12:12 | XMS_ITS | Encounter Summary ---
Author Organization [facility] Address [address] [place] [address] Care Team Providers Care Raise Miner Name Role Phone Racquel Cavanaugh MD Primary Care Provider [facility], Pcp Primary Care Provider Unavailabl e Encounter Details Date Type Department Care Team Description 11/03/2022 Orders Only Adult Medicine [facility] [address] [place] [address] Lore Duarte PA-C [address] [place] [address] [phone] Low hemoglobin and low hematocrit (Primary Dx) Social History Tobacco Use Types Packs/Day Years [...] Exposure Response Date Recorded In the last 10 days, have yo u been in contact with someone who was confirmed or suspected to have Coronavirus/COVID-19? No / Unsure 11/02/2022 11:13 AM EDT documented as of this encounter Plan of Treatment Not on file documented as of this encounter Results * (ABNORMAL) IRON/TIBC (03/12/2023 4:07 PM EST) IRON (FE) 51 40 - 150 ug/dL 03/12/2023 6:45 PM EST [facility] TOTAL IRON BINDING CAPACITY 371 250 - 450 ug/dL 03/12/2023 6:47 PM EST [facility] % FE SATURATION 14(L) 15 - 50 % 6:47 PM EST [facility] 03/12/2023 4:07 PM EST 03/12/2023 4:07 PM EST Narrative [facility] - 03/12/2023 6:47 PM EST Release to patient->Immediate Lore Duarte PA-C LAB [facility] * CHG ASSAY OF FERRITIN (03/12/2023 4:07 PM EST) FERRITIN 65 8 - 252 ng/mL 03/12/2023 6:47 PM EST [facility] 03/12/2023 4:07 PM EST 03/12/2023 4:07 PM EST Narrative [facility] - 03/12/2023 6:47 PM EST Release to patient->Immediate Lore Duarte PA-C LAB [facility] * (ABNORMAL) CHG BLOOD COUNT COMPLETE AUTO&AUTO DIFRNTL WBC (03/12/2023 4:07 PM EST) WHITE BLOOD COUNT 4.3(L) 4.8 - 10.8 x10-3/uL 03/12/2023 7:16 PM EST [facility] RED BLOOD COUNT 3.9 3.8 - 4.8 x10-6/uL 03/12/2023 7:16 PM EST [facility] Hemoglobin 11.9 11.5 - 16.0 g/dL 03/12/2023 7:16 PM EST [facility] Hematocrit 36.8 35 - 47 % 03/12/2023 7:16 PM EST [facility] MEAN CORPUSCULAR VOLUME 95.6 79 - 98 fL 03/12/2023 7:16 PM EST [facility] MEAN CORPUSCULAR HEMOGLOBIN 30.9 27 - 32 pg 03/12/2023 7:16 PM EST [facility] MEAN CORPUSCULAR HGB CONC 32.3 32 - 37 g/dL 03/12/2023 7:16 PM EST [facility] RED CELL DISTRIBUTION WIDTH 12.9 11 - 15 % 03/12/2023 7:16 PM EST [facility] PLT COUNT TNP 130 - 400 x10-3/uL 03/12/2023 7:16 PM EST [facility] Comment:Platelets appear fabio quate but clumped MEAN PLATELET VOLUME 10.1 7 - 11 fL 03/12/2023 7:16 PM EST [facility] NRBC % AUTO 0.0 <1 % 03/12/2023 7:16 PM EST [facility] NEUTROPHILS % 62.1 % 03/12/2023 7:16 PM EST [facility] LYMPH % 26.6 % 03/12/2023 7:16 PM EST [facility] MONO % 9.5 % 03/12/2023 7:16 PM EST [facility] EOS % 1.4 % 03/12/2023 7:16 PM EST [facility] BASO % 0.2 % 03/12/2023 7:16 PM EST [facility] IMMATURE GRANULOCYTES % 0.2 % 03/12/2023 7:16 PM EST [facility] NRBC # AUTO 0.00 <0.1 x10-3/uL 03/12/2023 7:16 PM EST [facility] NEUT # 2.68 1.5 - 7.0 x10-3/uL 03/12/2023 7:16 PM EST [facility] LYMPH # 1.15 1 - 5.0 x10-3/uL 03/12/2023 7:16 PM EST [facility] MONO # 0.41 0.2 - 1.0 x10-3/uL 03/12/2023 7:16 PM EST [facility] EOS # 0.06 0 - 0.5 x10-3/uL 03/12/2023 7:16 PM EST [facility] BASO # 0.01 0 - 0.2 x10-3/uL 03/12/2023 7:16 PM EST [facility] IMMATURE GRANULOCYTES # 0.01 0 - 0.03 x10-3/uL 03/12/2023 7:16 PM EST [facility] 03/12/2023 4:07 PM EST 03/12/2023 4:07 PM EST Narrative [facility] - 03/12/2023 7:16 PM EST Release to patient->Immediate Lore Duarte PA-C LAB Performing Organization Address City/State/[facility] Co de Phone Number [facility] documented in this encounter Visit Diagnoses Diagnosis Low hemoglobin and low hematocrit- Primary Low hemoglobin and low hematocrit documented in this encounter Care Teams Raise Miner Relationship Specialty Start Date End Date Racquel Cavanaugh MD [address] [place] [address] PCP - General Internal Medicine 02/05/21 10/21/23 [facility], Pcp [address] [place] [place] [phone] PCP - General Internal Medicine 10/22/23 documented as of this encounter
--- OUTSIDE RECORDS SUMMARY | 2024-07-21 12:12 | XMS_ITS | Encounter Summary ---
Author Organization [facility] Address [address] [place] [address] Care Team Providers Care Club Manager Name Role Phone Tenzin Zuluaga MD Primary Care Provider + [phone] Garcia Almeida MD Primary [facility] Racquel Cavanaugh MD Primary Care Provider [phone] [facility] Encounter Details Date Type Department Care Team Description 09/03/2016 Director Of Cath Lab Report Medical Records [address] [place] [address] Lana Christopher NP Social History Tobacco Use [...] on filedocumented in this encounter Care Teams Club Manager Relationship Specialty Start Date End Date Tenzin Zuluaga MD [address] [place] [phone] PCP - General 03/06/03 06/30/20 Garcia Almeida MD [address] [place] [phone] PCP - General Internal Medicine 07/01/20 02/04/21 Racquel Cavanaugh MD [address] [place] [phone] PCP - General Internal Medicine 02/05/21 10/21/23 [facility], Pcp [address] [place] [phone] PCP - General Internal Medicine 10/22/23 documented as of this encounter
--- OUTSIDE RECORDS SUMMARY | 2024-07-21 12:12 | XMS_ITS | Encounter Summary ---
Author Organization [facility] Address [address] [place] [address] Care Team Providers Care Mechanical Engineering Manager Name Role Phone Tenzin Zuluaga MD Primary Care Provider + [phone] Garcia Almeida MD Primary Care Provider Unavailab Racquel Beal MD Primary Care Provider [phone] [facility] Primary Care Provider Unavailabl e Reason for Visit * Reason Onset Date Comments refill request 08/24/2017 Encounter Details Date Type Department Care Team Description 08/24/2017 Refill Adult Medicine [address] [address] Tenzin Zuluaga MD [address] [place] [phone] refill request Social History Tobacco Use Types Packs/Day Years [...] encounter Miscellaneous Notes * Telephone Encounter - Mariah Blakely M.A. - 08/24/2017 12:02 PM EDT Lab Results Component Value Date CHOL 219 10/10/2016 LDL 90 10/10/2016 HDL 117 10/10/2016 TRIG 63 10/10/2016 * Telephone Encounter - Sandy Josuelillielakhwinderkamila - 08/24/2017 11:27 AM EDT Patient would like script to be: E-PRESCRIBED/FAXED TO PHARMACY WHEN WAS THE PATIENT'S LAST APPOINTMENT IN ADULT MEDICINE? 07/16/17 WHEN WAS THE LAST TIME THE PATIENT SAW THEIR PCP? Same as above Does patient have an upcoming appointment? Yes 01/18/18 (THE MEDICATION REQUESTED IS ON THE MED LIST ABOVE) All of the medications requested were on the CURRENT MEDS list Did you check the Pharmacy information above?: YES Patient wants: 90 -day supply Is this a mail order prescription request ? NO Patients current insurance carrier is: Payor: [employer] / [id number] /Product Type: POS [id number] documented in this encounter Plan of Treatment Not on file documented as of this encounter Visit Diagnoses Not on filedocumented in this encounter Care Teams Mechanical Engineering Manager Relationship Specialty Start Date End Date Tenzin Zuluaga MD [address] [place] [phone] PCP - General 03/06/03 06/30/20 Garcia Almeida MD [address] [place] [phone] PCP - General Internal Medicine 07/01/20 02/04/21 Racquel Cavanaugh MD [address] [place] [address] PCP - General Internal Medicine 02/05/21 10/21/23 [facility], Pcp [address] [place] [phone] PCP - General Internal Medicine 10/22/23 documented as of this encounter
--- OUTSIDE RECORDS SUMMARY | 2024-07-21 12:12 | XMS_ITS | Encounter Summary ---
Author Organization [facility] Address [address] [place] [address] Care Team Providers Care Commercial Housekeeper Name Role Phone Tenzin Zuluaga MD Primary Care Provider Garcia Almeida MD Primary Care Provider Unavailab Racquel Beal MD Primary Care Provider [phone] [facility] Primary Care Provider [facility] Encounter Details Date Type Department Care Team Description 01/02/2005 Orders Only Medical [address] [place] [phone] Tenzin Zuluaga MD [address] [place] [address] [phone] LONG-TERM (CURRENT) USE OF OTHER MEDICATIONS; OSTEOARTHROSIS, GENERALIZED, INVOLVING HAND Social History Tobacco Use Types Packs/Day Years Used Date Smoking Tobacco: Never Assessed Sex Assigned at Date Recorded Female 10/20/2021 10:22 AM EDT Job Start Date Occupation Industry Not on file Not on file Not on file documented as of this encounter Plan of Treatment Scheduled Orders Name Type Priority Associated Diagnoses Orde r Schedule VENIPUNCTURE Lab Routine Long-Term (Current) Use Of Other Medications Ordered: 01/02/2005 documented as of this encounter Procedures Procedure Name Priority Date/Time Associated Diagnosis Comments MANUAL DIFFERENTIAL, REFLEXED Routine 01/02/2005 8:37 AM EDT CHG URNLS DIP STICK/TABLET REAGENT AUTO MICROSCOPY Routine 01/02/2005 8:37 AM EDT Long-Term (Current) Use Of Other Medications [facility] BLOOD COUNT COMPLETE AUTO&AUTO DIFRNTL WBC Routine 01/02/2005 8:37 AM EDT Long-Term (Current) Use Of Other Medications Osteoarthrosis, Generalized, Involving Hand G LIPID PANEL Routine 01/02/2005 8:37 AM EDT Long-Term (Current) Use Of Other Medications [facility] COMPREHENSIVE METABOLIC PANEL Routine 01/02/2005 8:37 AM EDT Long-Term (Current) Use Of Other Medications documented in this encounter Results * MANUAL DIFFERENTIAL, REFLEXED (01/02/2005 8:37 AM EDT) NEUTROPHIL 69 41 - 85 % [facility] RBC MORPH COMMENT 1 NORMAL [facility] 01/02/2005 8:37 AM EDT 01/02/2005 8:38 AM EDT Tenzin Zuluaga MD LAB [facility] * URINALYSIS, COMPLETE (01/02/2005 8:37 AM EDT) GLUCOSE, URINE (UA) NEGATIVE NEGATIVE mg/dL [facility] BILIRUBIN URINE NEGATIVE NEGATIVE [facility] KETONE, URINE NEGATIVE NEGATIVE mg/dL [facility] SPECIFIC GRAVITY, URINE 1.009 1.003 - 1.030 [facility] BLOOD, URINE NEGATIVE NEGATIVE [facility] PH, URINE 7.0 5.0 - 8.0 [facility] PROTEIN, URINE NEGATIVE <= TRACE mg/dl [facility] UROBILINOGEN, URINE 0.2 0.2 - 1.0 E.U./dL [facility] NITRITE,URINE NEGATIVE NEGATIVE [facility] LEUKOCYTE ESTERASE, URINE NEGATIVE NEGATIVE [facility] RBC-Urine 1 0 - 4 /HPF [facility] WBC-Urine 0 0 - 4 /hpf [facility] BACTERIA, URINE NEGATIVE [facility] 01/02/2005 8:37 AM EDT 01/02/2005 8:38 AM EDT Tenzin Zuluaga MD LAB Performing Organization Address [facility] Co de Phone Number [facility] * (ABNORMAL) CBC (AUTO DIFF PLATELET) (01/02/2005 8:37 AM EDT) WHITE BLOOD COUNT 4.4(L) 4.8 - 10.8 x10-3 [facility] RED BLOOD COUNT 4.0 3.8 - 4.8 x10-6 [facility] Hemoglobin 11.9(L) 12.0 - 15.0 g/dL [facility] Hematocrit 36.2 36 - 46 % [facility] MEAN CORPUSCULAR VOLUME 89.6 79 - 98 fl [facility] HEMOGLOBIN 29.5 27 - 32 pg [facility] MEAN CORPUSCULAR HGB CONC 32.9 32 - 37 g/dl [facility] RED CELL DISTRIBUTION WIDTH 12.1 11 - 15 % [facility] PLT COUNT 354 130 - 400 x10-3 [facility] 01/02/2005 8:37 AM EDT 01/02/2005 8:38 AM EDT Tenzin Zuluaga MD LAB Performing Organization Address [facility] de Phone Number [facility] * (ABNORMAL) LIPID PROFILE (01/02/2005 8:37 AM EDT) Cholesterol 204(H) 0 - 200 mg/dL [facility] TRIGLYCERIDES 81 0 - 150 mg/dL [facility] HDL CHOLESTEROL 87 >40 mg/dL [facility] LDL CALCULATED 101(H) 0 - 100 mg/dL [facility] TC-HDLC RATIO 2.3 0 - 4.4 mg/dL [facility] 01/02/2005 8:37 AM EDT 01/02/2005 8:38 AM EDT Tenzin Zuluaga MD LAB Performing Organization Address [facility] Co de Phone Number [facility] * COMPREHENSIVE METABOLIC PANEL (01/02/2005 8:37 AM EDT) GLUCOSE 98 70 - 110 mg/dL [facility] Blood Urea Nitrogen 10 5 - 25 mg/dL [facility] CREAT 0.7 0.7 - 1.5 mg/dL [facility] GLOMERULAR FILTRATION RATE > 60 [facility] Comment: If patient is -[place], multiply result by 1.21 Chronic Kidney Disease: < 60 ml/min/1.73 square meters Kidney Failure: < 15 ml/min/1.73 square meters BUN/CREAT RATIO 14.3 6.0 - 20.0 G/dL [facility] NA 139 133 - 145 mEq/L [facility] K 4.3 3.5 - 5.2 mEq/L [facility] CL 103 96 - 108 mEq/L [facility] CARBON DIOXIDE (CO2) 29.6 21.0 - 32.0 mEq/L [facility] CALCIUM 9.8 8.5 - 10.5 mg/dL [facility] TOTAL PROTEIN (TP) 7.4 6.0 - 8.0 G/dL [facility] Albumin 4.5 3.2 - 5.6 G/dL [facility] GLOBULIN 2.9 1.9 - 4.4 G/dL [facility] A/G RATIO 1.6 1.1 - 2.3 [facility] BILIRUBIN TOTAL 0.3 0.0 - 1.4 mg/dL [facility] SGOT 19 10 - 42 U/L [facility] SGPT 15 10 - 60 U/L [facility] ALK PHOS 82 42 - 121 U/L [facility] 01/02/2005 8:37 AM EDT 01/02/2005 8:38 AM EDT Tenzin Zuluaga MD LAB [facility] documented in this encounter Visit Diagnoses Diagnosis Encounter for long-term (current) use of other medications Generalized osteoarthrosis, involving hand documented in this encounter Care Teams Commercial Housekeeper Relationship Specialty Start Date End Date Tenzin Zuluaga MD [address] [place] [phone] PCP - General 03/06/03 06/30/20 Garcia Almeida MD [address] [place] [address] PCP - General Internal Medicine 07/01/20 02/04/21 Racquel Cavanaugh MD [address] [place] [address] PCP - General Internal Medicine 02/05/21 10/21/23 [facility] [place] [address] PCP - General Internal Medicine 10/22/23 documented as of this encounter
[2024-07-21 12:20] LABS: Alanine Aminotransferase 10 U/L (0-31); Alkaline Phosphatase 59 U/L (39-117); Anion Gap 11 (12-20); Aspartate Amino Transferase 24 U/L (5-31); Bilirubin Total 0.3 mg/dL (0.0-1.0); Blood Urea Nitrogen 11 mg/dL (9-16); C Reactive Protein 0.44 mg/dL (< or = 0.50); Calcium 9.8 mg/dL (8.4-10.2); Carbon Dioxide 29 mmol/L (22-29); Chloride 103 mmol/L (96-108); Estimated Glomerular Filt Rate 57; Glucose Random 79 mg/dL (60-115); Potassium 4.3 mmol/L (3.3-5.1); Sodium 139 mmol/L (135-145); Total Protein 7.8 g/dL (6.5-8.0)
[2024-07-21 12:23] LABS: Vitamin D 25-OH Total 45.2 ng/mL (>30)
[2024-07-21 12:33] LABS: Erythrocyte Sedimentation Rate 58 MM/HR (0-20)
== END 2024-07-21 11:10 | disposition home or self-care (01) ==
LOC: HO.10HDL 11:09
PROVIDERS: Visit Provider Student in an Organized Health Care Education/Training Program
DX: M05.9 Rheumatoid arthritis with rheumatoid factor, unspecified (principal); M81.0 Age-related osteoporosis without current pathological fracture
CPT/HCPCS: 36415; 80053; 82306; 85025; 85652; 86140

== ENCOUNTER 2024-07-25 10:46 | Outpatient (AMB) | payer OTHER, SELFPAY ==
--- NOTE | 2024-07-25 10:49 | MHC.OFFVIS ---
Vital Signs 07/25/24 11:07 Height 4 ft 9.4 in Weight 110 lb 3.698 oz BMI 23.5 BP 142/80 H Blood Pressure Location Lt brachial Position Sitting Pulse 67 Pulse Source Pulse Oximeter Pulse Oximetry (%) 99 Oxygen Delivery Method Room Air Intake Visit Reasons: RA/prolia injection Intake Note: Patient presents for RA/Prolia injection follow up. Allergies alendronate sodium [From Fosamax] Allergy (Intermediate, Verified 07/25/24 10:57) myalgia/joint pain pravastatin Allergy (Intermediate, Verified 07/25/24 10:57) back pain risedronate sodium [From Actonel] Allergy (Intermediate, Verified 07/25/24 10:57) myalgia/joint pain Medication List - Last Reconciled 07/25/24 by Florida Pablo MD adalimumab (Humira(CF) Pen) 40 mg (0.4 mL) subcut Q2W calcium carbonate-vitamin D3 600 mg-25 mcg (1,000 unit) tabs PO denosumab 60 mg subcut [id number] ibuprofen 400 mg PO BID polyethylene glycol 400 1% 1 drp ophthalmic (eye) DAILY PRN simvastatin 5 mg PO BEDTIME HPI Comments Details: Patient is an 84-year-old female hyperlipidemia, hypertension, ILD, osteoporosis and seropositive rheumatoid arthritis here today for follow up Interval History: Patient last seen 01/24/[address] Blackman. At that time she was following up for her seropositive deforming rheumatoid arthritis complicated by ILD. She was on Humira 40 mg every other week and reported that she had been doing fairly well. Today, She continues to report that she is well. No new complaints. No falls or fractures since the last visit. Rheumatologic History: SERO POS ccp POSITIVE On methtrexate since 2005; Enbrel added 02/26; methotrexate stopped 12/28 due to leukopenia. Enbrel stopped 12/29 - remission. Enbrel restarted 05/30 for return of synovitis from RA Humira in place of Enbrel 08/07 Current Rheumatology Medication(s): Humira 40mg SC every 2 weeks Prolia 60mg every 6 months PFSH Medical History Cataract fragments in both eyes following surgery Senile osteoporosis Seropositive rheumatoid arthritis Mixed hyperlipidemia ILD (interstitial lung disease) Hypertension Surgical History H/O sigmoidoscopy H/O vaginal hysterectomy Hx of colonoscopy History of carpal tunnel release Family History Mother No problems noted. Father No problems noted. Social History Household Members: Spouse Alcohol intake: current Alcohol intake frequency: does not drink Patient Tobacco Use Status: Never used Tobacco Review of Systems Const Details: Review of Systems Constitutional: Denies fever, chills, weight loss ENT: Denies vision changes, eye pain or eye redness, dental caries, dry mouth GI: Denies nausea, vomiting, diarrhea, abdominal pain, change in BM Pulm: Denies SOB, VALDERRAMA, hemoptysis, wheezing Cards: Denies chest pain, palpitations Skin: Denies Raynaud's, rash, nail changes, photosensitivity, CLEANING STAFF SUPERVISOR: Denies headaches, weakness, paresthesias, recurrent falls MSK: as per HPI All other systems reviewed and are unremarkable except noted above Physical Exam Vital Signs: Last Vital Signs Pulse 67 07/25/24 11:07 BP 142/80 H 07/25/24 11:07 Pulse Ox 99 07/25/24 11:07 Oxygen Delivery Method Room Air 07/25/24 11:07 BMI result Body Mass Index 23.5 Vital signs reviewed Physical Examination CONSTITUITIONAL Patient alert and cooperative. Well appearing and in no apparent painful distress HEENT Conjunctiva and sclera clear. ?Pupils equal round and reactive to light. ?No lymphadenopathy. ? CHEST/RESPIRATORY SYSTEM Normal respiratory effort and able to speak in complete sentences. ?Creps about 2/3 up from the bases bilaterally CARDIAC SYSTEM Regular rate and rhythm. ?S1 and S2 heard no murmurs. ?Radial pulses intact bilaterally MSK Hands: ?Able to make a fist. No synovitis noted to the MCPs, PIPs or DIPs. ?No tenderness to palpation of these joints. Ulnar deviation of the right 2nd DIP. SYnovial hypertrophy Wrists: ?Full range of motion at the wrists without pain. ?No tenderness to palpation or synovitis noted to the wrists. Elbows: Full range of motion without pain. No tenderness, weakness, swelling, increased warmth or erythema. Shoulders: Full range of active range of motion without pain. No tenderness, weakness, swelling, increased warmth or erythema. Knees: ?Full range of motion. ?No tenderness, swelling, increased warmth or erythema.?Crepitations bilaterally Ankles: Full range of motion. ?No tenderness, swelling, increased warmth or erythema.? Feet: ?Negative squeeze test. ?No tenderness to palpation or swelling of the MTPs. Tender points:?No tenderness to palpation of the bilateral trapezius, supraspinatus, greater trochanters, anterior costochondral junctions, bilateral gluteal areas, bilateral suboccipital muscle insertions SKIN Skin intact without rashes. Office Meds Prolia 60 mg/mL subcutaneous syringe Performing Provider: Florida Pablo MD Performing Location: [facility] Administered by: Florida Pablo MD on 07/25/24 11:45 Dose Route Admin Location Dispensed Lot Number Expiration Date NDC Poultry Offal Worker 60 mg subcut left deltoid 1 mL [id number] 10/19/26 90961-181-53 [employer] Results Reviewed Results Reviewed: Laboratory Tests 07/21/24 11:11 WBC 4.2 L RBC 3.78 L Hgb 11.2 L Hct 35.1 L Plt Count 297 ESR 58 H Sodium 139 Potassium 4.3 Chloride 103 Carbon Dioxide 29 BUN 11 Creatinine 0.94 AST 24 ALT 10 Alkaline Phosphatase 59 C-Reactive Protein 0.44 25-OH Vitamin D Total 45.2 Infectious Disease 01/18/24 10:30 Hepatitis A IgM Ab Nonreactive Hep Bs Antigen Negative Hep Bs Antibody NONREACTIVE Hep B Core Total Ab Reactive Hep B Core IgM Ab NON-REACTIVE Hepatitis C Ab (EIA) Nonreactive TB Test (T-Spot) Com Negative DEXA 05/2022 FINDINGS: AP SPINE L1-L2 (excluding L3 and L4): The data of L1-L4 has been changed to exclude the L3 and L4 vertebral bodies, because degenerative changes at these levels may cause overestimation of lumbar spine density. BMD 0.937 g/cm2, Z-score 0.5, T-score -1.9, osteopenia. LEFT FEMUR, NECK: BMD 0.548 g/cm2, Z-score -0.9, T-score -3.5, osteoporosis. LEFT FEMUR, TOTAL: BMD 0.634 g/cm2, Z-score -0.5, T-score -3.0, osteoporosis. Assessment & Plan Assessment & Plan (1) Seropositive rheumatoid arthritis: Comment: SERO POS ccp POSITIVE On methtrexate since 2005; Enbrel added 02/26; methotrexate stopped 12/28 due to leukopenia. Enbrel stopped 12/29 - remission. Enbrel restarted 05/30 for return of synovitis from RA Humira in place of Enbrel 08/07 Code(s): M05.9 - Rheumatoid arthritis with rheumatoid factor, unspecified Category: Medical Plan: #Seropositive erosive RA Patient with seropositive erosive and deforming rheumatoid arthritis here today for follow up. Currently in remission on Humira. Plan - Humira 40mg SC every 2 weeks - RTC 6 months - Labs before visit: CBC, CMP, ESR, CRP, hepatitis panel, T spot, vitamin D (2) ILD (interstitial lung disease): Comment: October 2016 PFT at [facility]: FEV1 99% normal, FVC 74% normal, TLC 80% normal, diffusing capacity 70% normal: Mild to moderate restrictive lung disease CT showed lower lobe interstitial changes and bronchiectasis repeat PFT 11/10: nl volumes; DLCO 74%. Repeat PFTs 06/2023. nl volumes with DLCO 78% Code(s): J84.9 - Interstitial pulmonary disease, unspecified Category: Medical Plan: #ILD Patient with ILD. Evidence of Creps on her exam. Stable in terms of lung symptoms We will check a repeat CT this year and repeat PFTs Plan - CT scan every 2 years. Due for 2024 - PFTs every year. Due for 2024 (3) Senile osteoporosis: Comment: INTOLERANT OF Fosamax and Actonel: bone pain Miacalcin: nosebleeds and dizzyness On vitamin D supplements July 2018 DEXA showed slight improvement in the LS spine density and slight but not significant worsening at the hip. T-scores: -2.9 at hip, -1.2 at LS spine 2022 DEXA hip -3.0, LS spine -1.9, L fem neck -3.5 07/02/22, Prolia started Code(s): M81.0 - Age-related osteoporosis without current pathological fracture Category: Medical Plan: #Osteoporosis Patient with osteoporosis currently on Prolia. Due for repeat DEXA scan. Vitamin-D at goal Plan - DEXA scan - Continue vit D supplementation - Prolia every 6 months (4) Encounter for monitoring of adalimumab therapy: Code(s): Z51.81 - Encounter for therapeutic drug level monitoring; Z79.620 - bench manager (current) use of immunosuppressive biologic Plan: #Long-term Use of TNF Inhibitors: Humira Discussed with the patient the benefits and risks of TNF inhibitors for the management of the rheumatic condition Benefits include reduce pain, maintenance of remission and reduction of flares as well as ?progression of the disease Risks include injection sites/infusion reactions, serious infections (such as bacterial infections, opportunistic infections), malignancy, delaminating syndromes, autoimmune phenomena, CHF exacerbations, palmar plantar psoriasis and cytopenias Recommended rotating injection sites, and holding medication during and for up to 1 week after resolution of a febrile illness or open skin wound (5) Encounter for monitoring denosumab therapy: Code(s): Z51.81 - Encounter for therapeutic drug level monitoring; Z79.620 - correction (current) use of immunosuppressive biologic Plan: #Long-term use of Denosumab Discussed with patient the risks and benefits of denosumab (Prolia) for the management of their osteoporosis Benefits include improved bone density, decreased fracture risk Risks include rapid bone loss if denosumab stopped, osteonecrosis of the jaw especially in patients with poor oral hygiene/diabetes/use of glucocorticoids/age greater than 65 years, atypical femoral fractures, injection site reactions. Mild increased risk of infections due to RANKL on T helper cells, increased risk of hypocalcemia especially in CKD patients Keep vitamin-D at least 35 ng/mL Advised to delay non emergent dental procedures to toward the end of the 6 month cycle and if they plan to stop denosumab would need to continue antiresorptive to maintain the effects of denosumabe Plan I spent 30 minutes reviewing the record and labs, taking a history, examining the patient, discussing the treatment plan, ordering diagnostic work up and documenting in the medical record Orders: Orders Erythrocyte Sedimentation Rate 6 Months M05.9 - Rheumatoid arthritis with rheumatoid factor, unspecified Hepatitis A,B,C Profile 6 Months M05.9 - Rheumatoid arthritis with rheumatoid factor, unspecified T Spot TB 6 Months M05.9 - Rheumatoid arthritis with rheumatoid factor, unspecified PFT pulmonary function test Today J84.9 - Interstitial pulmonary disease, unspecified, M05.9 - Rheumatoid arthritis with rheumatoid factor, unspecified Complete Blood Count Auto Diff 6 Months M05.9 - Rheumatoid arthritis with rheumatoid factor, unspecified Comprehensive Met. Panel 6 Months M05.9 - Rheumatoid arthritis with rheumatoid factor, unspecified C Reactive Protein 6 Months M05.9 - Rheumatoid arthritis with rheumatoid factor, unspecified Vitamin D 25-OH (D2 and D3) 6 Months E55.9 - Vitamin D deficiency, unspecified XR DEXA axial skeleton Today M81.0 - Age-related osteoporosis without current pathological fracture CT chest wo con - High Res Today J84.9 - Interstitial pulmonary disease, unspecified, M05.9 - Rheumatoid arthritis with rheumatoid factor, unspecified AMB Denosumab Injection Patient Supplied Today M81.0 - Age-related osteoporosis without current pathological fracture Medications: New Prolia (denosumab) 60 mg subcut ONCE 1 mL 0RF NS M81.0 - Age-related osteoporosis without current pathological fracture Coding Level of Care Code Est Pt Level 4 (01773) Complex EM visit Add On G2211 Diagnoses Seropositive rheumatoid arthritis M05.9 ILD (interstitial lung disease) J84.9 Senile osteoporosis M81.0 Encounter for monitoring of adalimumab therapy Z51.81; Z79.620 Encounter for monitoring denosumab therapy Z51.81; Z79.620
[2024-07-25 11:07] VITALS: BP 142/80; PULSE 67; O2SAT 99; BMI 23.5
--- OUTSIDE RECORDS SUMMARY | 2024-07-25 12:26 | XMS_ITS | Encounter Summary ---
[facility] Organization [facility] Address [address] [place] [address] Care Team Providers Care Distribution Collection Operator Name Role Phone Racquel Cavanaugh MD Primary Care Provider [phone] [facility], Pcp Primary Care Provider Unavailabl e Encounter Details Date Type Department Care Team Description 11/03/2022 Orders Only Adult Medicine [facility] [address] [place] [address] Lore Duarte PA-C [address] [place] [address] [phone] Low hemoglobin and low hematocrit (Primary Dx) [...] 32 pg 03/12/2023 7:16 PM EST [facility] MEAN CORPUSCULAR HGB CONC 32.3 32 - 37 g/dL 03/12/2023 7:16 PM EST [facility] RED CELL DISTRIBUTION WIDTH 12.9 11 - 15 % 03/12/2023 7:16 PM EST [facility] PLT COUNT TNP 130 - 400 x10-3/uL 03/12/2023 7:16 PM EST [facility] Comment:Platelets appear fabio quate but clumped MEAN PLATELET VOLUME 10.1 7 - 11 fL 03/12/2023 7:16 PM EST [facility] NRBC % AUTO 0.0 <1 % 03/12/2023 7:16 PM EST [facility] NEUTROPHILS % 62.1 % 03/12/2023 7:16 PM EST [facility] LYMPH % 26.6 % 03/12/2023 7:16 PM EST [facility] MONO % 9.5 % 03/12/2023 7:16 PM EST [facility] EOS % 1.4 % 03/12/2023 7:16 PM EST [facility] BASO % 0.2 % 03/12/2023 7:16 PM EST [facility] IMMATURE GRANULOCYTES % 0.2 % 03/12/2023 7:16 PM EST [facility] NRBC # AUTO 0.00 <0.1 x10-3/uL 03/12/2023 7:16 PM EST [facility] NEUT # 2.68 1.5 - 7.0 x10-3/uL 03/12/2023 7:16 PM EST [facility] LYMPH # 1.15 1 - 5.0 x10-3/uL 03/12/2023 7:16 PM EST [facility] MONO # 0.41 0.2 - 1.0 x10-3/uL 03/12/2023 7:16 PM EST [facility] EOS # 0.06 0 - 0.5 x10-3/uL [...] Lore Duarte PA-C LAB Performing Organization Address City/State/[facility] Co de Phone Number [email or web address] documented in this encounter Visit Diagnoses Diagnosis Low hemoglobin and low hematocrit- Primary Low hemoglobin and low hematocrit documented in this encounter Care Teams Distribution Collection Operator Relationship Specialty Start Date End Date Racquel Cavanaugh MD [address] [place] [address] PCP - General Internal Medicine 02/05/21 10/21/23 [facility], Pcp [address] [place] [address] PCP - General Internal Medicine 10/22/23 documented as of this encounter
--- OUTSIDE RECORDS SUMMARY | 2024-07-25 12:26 | XMS_ITS | Encounter Summary ---
[facility] Organization [facility] Address [address] [place] [address] Care Team Providers Care Fisher Eel Name Role Phone Tenzin Zuluaga MD Primary Care Provider [phone] Garcia Almeida MD Primary Care [facility] Racquel Cavanaugh MD Primary Care Provider [phone] [facility] Encounter Details Date Type Department Care Team Description 09/03/2016 Grinding Machine Operator Portable Report Medical Records [address] [place] [address] Lana Christopher NP Social History Tobacco Use [...] on filedocumented in this encounter Care Teams Fisher Eel Relationship Specialty Start Date End Date Tenzin Zuluaga MD [address] [place] [address] PCP - General 03/06/03 06/30/20 Garcia Almeida MD [address] [place] [phone] PCP - General Internal Medicine 07/01/20 02/04/21 Racquel Cavanaugh MD [address] [place] [address] PCP - General Internal Medicine 02/05/21 10/21/23 [facility], Pcp [address] [place] [phone] PCP - General Internal Medicine 10/22/23 documented as of this encounter
--- OUTSIDE RECORDS SUMMARY | 2024-07-25 12:26 | XMS_ITS | Encounter Summary ---
[facility] Address [address] [place] [address] Care Team Providers Care Strip Cutter Name Role Phone Tenzin Zuluaga MD Primary Care Provider + [phone] Garcia Almeida MD [facility] Racquel Cavanaugh MD Primary Care Provider [phone] [facility] Encounter Details Date Type Department Care Team Description 09/03/2016 Link Wire Fabric Machine Operator Report Medical Records [address] [place] [address] Lana Christopher NP Social History Tobacco Use [...] on filedocumented in this encounter Care Teams Strip Cutter Relationship Specialty Start Date End Date Tenzin Zuluaga MD [address] [place] [address] PCP - General 03/06/03 06/30/20 Garcia Almeida MD [address] [place] [phone] PCP - General Internal Medicine 07/01/20 02/04/21 Racquel Cavanaugh MD [address] [place] [phone] PCP - General Internal Medicine 02/05/21 10/21/23 [facility], Pcp [address] [place] [address] PCP - General Internal Medicine 10/22/23 documented as of this encounter
--- OUTSIDE RECORDS SUMMARY | 2024-07-25 12:26 | XMS_ITS | Encounter Summary ---
[facility] Organization [facility] Address [address] [place] [address] Care Team Providers Care Drilling Fluids Specialist Name Role Phone Tenzin Zuluaga MD Primary Care Provider + [phone] Garcia Almeida MD Primary [facility] Racquel Cavanaugh MD Primary Care Provider [phone] [facility] Primary Care [facility] Encounter Details Date Type Department Care Team Description 09/07/2016 Release of Information Medical Records [address] [place] [id number] Abstract, Provider Social History Tobacco Use Types [...] on filedocumented in this encounter Care Teams Drilling Fluids Specialist Relationship Specialty Start Date End Date Tenzin Zuluaga MD [address] [place] [address] PCP - General 03/06/03 06/30/20 Garcia Almeida MD [address] [place] [address] PCP - General Internal Medicine 07/01/20 02/04/21 Racquel Cavanaugh MD [address] [place] [address] PCP - General Internal Medicine 02/05/21 10/21/23 [facility], Pcp [address] [place] [address] PCP - General Internal Medicine 10/22/23 documented as of this encounter
--- OUTSIDE RECORDS SUMMARY | 2024-07-25 12:26 | XMS_ITS | Encounter Summary ---
Author Organization [facility] Address [address] [place] [address] Care Team Providers Care Coil Winding Supervisor Name Role Phone Tenzin Zuluaga MD Primary Care Provider + [phone] Garcia Almeida MD Primary Care Provider [facility] Racquel Cavanaugh MD Primary Care Provider [phone] [facility] Primary Care [facility] Encounter Details Date Type Department Care Team Description 06/02/2010 [facility] Proxy Form Medical Records [address] [place] [id number] Abstract, Provider Social History Tobacco Use Types [...] on filedocumented in this encounter Care Teams Coil Winding Supervisor Relationship Specialty Start Date End Date Tenzin Zuluaga MD [address] [place] [address] PCP - General 03/06/03 06/30/20 Gacria Almeida MD [address] [place] [address] PCP - General Internal Medicine 07/01/20 02/04/21 Racquel Cavanaugh MD [address] [place] [address] PCP - General Internal Medicine 02/05/21 10/21/23 [facility], Pcp [address] [place] [address] PCP - General Internal Medicine 10/22/23 documented as of this encounter
--- OUTSIDE RECORDS SUMMARY | 2024-07-25 12:26 | XMS_ITS | Encounter Summary ---
Author Organization [facility] Address [address] [place] [address] Care Team Providers Care Tractor Trailer Driver Name Role Phone Racquel Cavanaugh MD Primary Care Provider [phone] [facility], Pcp Primary Care Provider Unavailabl e Reason for Visit * Reason Onset Date Comments preop exam 12/04/2021 Encounter Details Date Type Department Care Team Description 12/04/2021 Telephone Adult Medicine [address] [phone] Racquel Cavanaugh MD [address] [place] [address] [phone] preop exam Social History Tobacco Use Types Packs/Day Years [...] encounter Miscellaneous Notes * Telephone Encounter - Hillary Jimenez - 12/04/2021 2:59 PM EDT Date of surgery: 02/18/22 What surgery is patient having (gall bladder, cataract, appendix, etc...)?: Cataract right eye Surgeon's name: Dr Gorman Office phone number of surgeon: [phone] Fax # for surgeons office: [phone] (Required) Where is surgery being performed[facility] [place] Diagnosis/problem for surgery: cataract Is an EKG required for the pre-op workup? NO PCP: Racquel Cavanaugh Did you verify that the insurance below is correct? YES Patients insurance: Payor: [employer] PLAN / Plan: POS $0 [place] [id number] / Product Type: POS [id number] documented in this encounter Plan of Treatment Not on file documented as of this encounter Visit Diagnoses Not on filedocumented in this encounter Care Teams Tractor Trailer Driver Relationship Specialty Start Date End Date Racquel Cavanaugh MD [address] [place] [address] PCP - General Internal Medicine 02/05/21 10/21/[address] [address] PCP - General Internal Medicine 10/22/23 documented as of this encounter
--- OUTSIDE RECORDS SUMMARY | 2024-07-25 12:26 | XMS_ITS | Encounter Summary ---
Author Organization [facility] [employer] [facility] Address [address] [place] [address] Care Team Providers Care Public Address System Operator Name Role Phone Tenzin Zuluaga MD Primary Care Provider Garcia Almeida MD Primary Care Provider Unavailab Racquel Beal MD Primary Care Provider [phone] [facility] Encounter Details Date Type Department Care Team Description 01/02/2005 Orders Only Medical [address] [place] [address] [phone] Tenzin Zuluaga MD [address] [place] [address] [phone] LONG-TERM (CURRENT) USE OF OTHER MEDICATIONS; OSTEOARTHROSIS, [...] EDT Long-Term (Current) Use Of Other Medications [facility] BLOOD COUNT COMPLETE AUTO&AUTO DIFRNTL WBC Routine 01/02/2005 8:37 AM EDT Long-Term (Current) Use Of Other Medications Osteoarthrosis, Generalized, Involving Hand G LIPID PANEL Routine 01/02/2005 8:37 AM EDT Long-Term (Current) Use Of Other Medications [facility] COMPREHENSIVE METABOLIC PANEL Routine 01/02/2005 8:37 AM EDT Long-Term (Current) Use Of Other Medications documented in this encounter Results * MANUAL DIFFERENTIAL, REFLEXED (01/02/2005 8:37 AM EDT) NEUTROPHIL 69 41 - 85 % [facility] RBC MORPH COMMENT 1 NORMAL [facility] 01/02/2005 8:37 AM EDT 01/02/2005 8:38 AM EDT Tenzin Zuluaga MD LAB [facility] * URINALYSIS, COMPLETE (01/02/2005 8:37 AM EDT) GLUCOSE, URINE (UA) NEGATIVE NEGATIVE mg/dL [facility] BILIRUBIN URINE NEGATIVE NEGATIVE [facility] KETONE, URINE NEGATIVE NEGATIVE mg/dL [facility] SPECIFIC GRAVITY, URINE 1.009 1.003 - 1.030 [facility] BLOOD, URINE NEGATIVE NEGATIVE [facility] PH, URINE 7.0 5.0 - 8.0 [facility] PROTEIN, URINE NEGATIVE <= TRACE mg/dl [facility] UROBILINOGEN, URINE 0.2 0.2 - 1.0 E.U./dL [facility] NITRITE,URINE NEGATIVE NEGATIVE [facility] LEUKOCYTE ESTERASE, URINE NEGATIVE NEGATIVE [facility] RBC-Urine 1 0 - 4 /HPF [facility] WBC-Urine 0 0 - 4 /hpf [facility] BACTERIA, URINE NEGATIVE [facility] 01/02/2005 8:37 AM EDT 01/02/2005 8:38 AM EDT Tenzin Zuluaga MD LAB Performing Organization Address [facility] Co de Phone Number [facility] * (ABNORMAL) CBC (AUTO DIFF PLATELET) [...] Tenzin Zuluaga MD LAB Performing Organization Address [facility] de Phone Number [facility] * (ABNORMAL) LIPID PROFILE (01/02/2005 8:37 AM [...] Tenzin Zuluaga MD LAB Performing Organization Address [facility] Co de Phone Number [facility] * COMPREHENSIVE METABOLIC PANEL (01/02/2005 8:37 AM EDT) GLUCOSE 98 70 - 110 mg/dL [facility] Blood Urea Nitrogen 10 5 - 25 mg/dL [facility] CREAT 0.7 0.7 - 1.5 mg/dL [facility] GLOMERULAR FILTRATION RATE > 60 [facility] Comment: If patient is -Canadian, multiply result by 1.21 Chronic Kidney Disease: [...] AM EDT Tenzin Zuluaga MD LAB [facility] documented in this encounter Visit Diagnoses Diagnosis Encounter for long-term (current) use of other medications Generalized osteoarthrosis, involving hand documented in this encounter Care Teams Public Address System Operator Relationship Specialty Start Date End Date Tenzin Zuluaga MD [address] [place] [id number] PCP - General 03/06/03 06/30/20 Garcia Almeida MD [address] [place] [address] PCP - General Internal Medicine 07/01/20 02/04/21 Racquel Cavanaugh MD [address] [place] [address] PCP - General Internal Medicine 02/05/21 10/21/23 [facility] [place] [address] PCP - General Internal Medicine 10/22/23 documented as of this encounter
--- OUTSIDE RECORDS SUMMARY | 2024-07-25 12:26 | XMS_ITS | Encounter Summary ---
Author Organization [facility] Address [address] [place] [address] Care Team Providers Care Ldr Nurse Name Role Phone Racquel Cavanaugh MD Primary Care Provider [facility], Pcp Primary Care Provider Unavailabl e Encounter Details Date Type Department Care Team Description 05/15/2022 Telephone Adult Medicine [address] [phone] Racquel Cavanaugh MD [address] [place] [address] [phone] Social History Tobacco Use Types Packs/Day Years [...] Recorded In the last 10 days, have magalys u been in contact with someone who was confirmed or suspected to have Coronavirus/COVID-19? No / Unsure 05/12/2022 11:12 AM EST documented as of this encounter Plan of Treatment Not on file documented as of this encounter Visit Diagnoses Not on filedocumented in this encounter Care Teams Ldr Nurse Relationship Specialty Start Date End Date Racquel Cavanaugh MD [address] [place] [address] [phone] PCP - General Internal Medicine 02/05/21 10/21/23 [facility], Pcp [address] [place] [address] PCP - General Internal Medicine 10/22/23 documented as of this encounter
--- OUTSIDE RECORDS SUMMARY | 2024-07-25 12:26 | XMS_ITS | Encounter Summary ---
[facility] Organization [facility] Address [address] [place] [address] Care Team Providers Care Pecan Huller Name Role Phone Tenzin Zuluaga MD Primary Care Provider [phone] Garcia Almeida MD Primary Care Provider Unavail Racquel Beal MD Primary Care Provider [phone] [facility] Primary [facility] Encounter Details Date Type Department Care Team Description 11/16/2016 Nursery Teacher Report Medical Records [address] [place] [address] Mitch Mariano MD [address] [place] [phone] Social History Tobacco Use Types Packs/Day Years [...] on filedocumented in this encounter Care Teams Pecan Huller Relationship Specialty Start Date End Date Tenzin Zuluaga MD [address] [place] [address] PCP - General 03/06/03 06/30/20 Garcia Almeida MD [address] [place] [phone] PCP - General Internal Medicine 07/01/20 02/04/21 Racquel Cavanaugh MD [address] [place], [place] [phone] PCP - General Internal Medicine 02/05/21 10/21/23 [facility], Pcp [address] [place] [phone] PCP - General Internal Medicine 10/22/23 documented as of this encounter
--- OUTSIDE RECORDS SUMMARY | 2024-07-25 12:26 | XMS_ITS | Encounter Summary ---
[facility] Organization [facility] Address [address] [place] [address] Care Team Providers Care Radio Mechanic Apprentice Name Role Phone Tenzin Zuluaga MD Primary Care Provider [phone] Garcia Almeida MD Primary Care Provider Unavailab Racquel Beal MD Primary Care Provider [phone] [facility] Primary Care Provider [facility] e Encounter Details Date Type Department Care Team Description 12/11/2019 Pt. Non Urgent Medical Question Adult Medicine [address] [phone] Jorje Steel PA-C [address] [place] [address] Social History Tobacco Use Types Packs/Day Years [...] 12/11/2019 10:32 AM EDT Subject: Bill from [employer] [facility] for 10/04/2019 visit. Sreekanth Mtz, I received a bill from [facility] for $104.08 for my last visit. I do not understand why my Gray and I have been seeing you the past several years and never received a bill for it. [place] and got cut off twi ce trying to talk to those people. [facility] said that you are an out of system provider or something like that. Still cannot get thru to the [facility] billing headquarters. They keep cutting me off like they don't want to hear about theproblem. Would like some help from [facility] on this. Yg Claire documented in this encounter Plan of Treatment Not on file documented as of this encounter Visit Diagnoses Not on filedocumented in this encounter Care Teams Radio Mechanic Apprentice Relationship Specialty Start Date End Date Tenzin Zuluaga MD [address] [place] [address] PCP - General 03/06/03 06/30/20 Garcia Almeida MD [address] [place] [address] PCP - General Internal Medicine 07/01/20 02/04/21 Racquel Cavanaugh MD [address] [place] [address] PCP - General Internal Medicine 02/05/21 10/21/23 [facility], [address] [address] PCP - General Internal Medicine 10/22/23 documented as of this encounter
== END 2024-07-25 11:45 | disposition home or self-care (01) ==
LOC: HO.RHE 10:47
PROVIDERS: PCP Family Medicine; Visit Provider Student in an Organized Health Care Education/Training Program
DX: M05.79 Rheumatoid arthritis with rheumatoid factor of multiple sites without organ or systems involvement (principal); J84.9 Interstitial pulmonary disease, unspecified; M81.0 Age-related osteoporosis without current pathological fracture; Z51.81 Encounter for therapeutic drug level monitoring; Z79.620 Long term (current) use of immunosuppressive biologic
CPT/HCPCS: 99214

== ENCOUNTER → 2024-07-25 10:46 | Outpatient (BNVA) | payer OTHER, SELFPAY | PROVIDERS: PCP Family Medicine; Visit Provider Student in an Organized Health Care Education/Training Program | DX: M05.9 Rheumatoid arthritis with rheumatoid factor, unspecified (principal); M81.0 Age-related osteoporosis without current pathological fracture; J84.9 Interstitial pulmonary disease, unspecified; Z51.81 Encounter for therapeutic drug level monitoring; Z79.620 Long term (current) use of immunosuppressive biologic | CPT/HCPCS: 96372; 99212; J0897 ==

== ENCOUNTER 2024-08-15 10:47 | Outpatient (REF) | payer OTHER, SELFPAY ==
--- NOTE | ~2024-08-15 | MM_ITS ---
EXAMINATION: DXA BONE DENSITY AXIAL HISTORY: M81.0 - Age-related osteoporosis without current pathological fracture TECHNIQUE: Fluentify Dual energy absorptiometry (DEXA) of the lumbar spine, total left hip, and femoral neck was performed. COMPARISON: Comparison is made with the prior examination dated 05/21/2022. FINDINGS: The bone mineral density of the lumbar spine is 0.981, corresponding to a T-score of -1.5, and a Z-score of 0.9. This is indicative of osteopenia. This represents a BMD change of 4.7% compared to the prior exam. This is not statistically significant. The bone mineral density of the left total hip is 0.692, corresponding to a T-score of -2.5, and a Z-score of 0.1. This is indicative of osteoporosis. This represents a BMD change of 9.1% compared to the prior exam. This is statistically significant. The bone mineral density of the left femoral neck is 0.559, corresponding to a T-score of -3.4, and a Z-score of -0.7. This is indicative of osteoporosis. This represents a BMD change of 2.0% compared to the prior exam. FRACTURE RISK: The FRAX index suggests a ten year probability of major osteoporotic fracture of 245%, and of hip fracture 11.5%. MM/XR DEXA axial skeleton IMPRESSION: Based on bone mineral density, and according to World Health Organization (WHO) criteria, the diagnosis is consistent with osteoporosis. All bone density values are in grams per centimeter squared (g/cm2). Statistically, 68% of repeat scans fall within 1 SD (+/- 0.010 g/cm2 for AP spine L1-L4) and 1 SD (+/- 0.012 g/cm2 for femur total) FRAX is a trademark of the [employer]'s [employer] Met[employer], a World Health Organization (WHO) Collaborating Center. Electronically signed by: Dusty Reyna MD 08/16/2024 08:58 AM EDT
--- OUTSIDE RECORDS SUMMARY | 2024-08-15 11:36 | XMS_ITS | Encounter Summary ---
Author Organization [facility] Address [address] [place] [address] Care Team Providers Care Director Blood Bank Name Role Phone Tenzin Zuluaga MD Primary Care Provider [phone] Garcia Almeida MD Primary Care Provider Unavailab Racquel Beal MD Primary Care Provider [phone] [facility] Primary Care Provider Unavailabl e Reason for Visit * Reason Onset Date Comments medication problems 08/01/2018 Encounter Details Date Type Department Care Team Description 08/01/2018 Telephone Rheumatology - [address] [phone] Matt Reyez MD medication problems Social History Tobacco Use Types Packs/Day Years [...] encounter Miscellaneous Notes * Telephone Encounter - Matt Reyez MD - 08/01/2018 5:24 PM EDT I sent in a new prescription for the Humira pen Dr. Reyez * Telephone Encounter - Caroline Thompson L.P.N. - 08/01/2018 3:48 PM EDT I am not sure what you ordered.... Pen or pre filled syringe?? * Telephone Encounter - Miri Rutherford - 08/01/2018 10:36 AM EDT Who is calling? A pharmacist Name of the medication Adalimumab (HUMIRA) 40 MG/0.8ML Prefilled Syringe Kit What is the specific problem or interaction? Pharmacist is requesting if is requesting prefilled syringe or just pen's. Would like clarifications on medication. If the patient is having a problem with taking the med - how long has the problem been going on? N/A documented in this encounter Plan of Treatment Not on file documented as of this encounter Visit Diagnoses Diagnosis Seropositive rheumatoid arthritis (HCC) Rheumatoid arthritis documented in this encounter Care Teams Director Blood Bank Relationship Specialty Start Date End Date Tenzin Zuluaga MD [address] [place] [address] PCP - General 03/06/03 06/30/20 Garcia Almeida MD [address] [place] [address] PCP - General Internal Medicine 07/01/20 02/04/21 Racquel Cavanaugh MD [address] [place] [address] PCP - General Internal Medicine 02/05/21 10/21/23 [facility], [address] [address] PCP - General Internal Medicine 10/22/23 documented as of this encounter
== END 2024-08-15 10:48 | disposition home or self-care (01) ==
LOC: HO.MAMMO 10:47
PROVIDERS: PCP Family Medicine; Visit Provider Student in an Organized Health Care Education/Training Program
DX: M81.0 Age-related osteoporosis without current pathological fracture (principal)
CPT/HCPCS: 77080

== ENCOUNTER → 2024-08-15 11:00 | Outpatient (BNV) | payer OTHER, SELFPAY | PROVIDERS: PCP Family Medicine; Visit Provider Radiology Diagnostic Radiology | DX: E28.39 Other primary ovarian failure (principal) | CPT/HCPCS: 77080 ==

== ENCOUNTER 2024-09-12 09:37 | Outpatient (REF) | payer OTHER, SELFPAY ==
--- NOTE | 2024-09-12 09:41 | PFT_ITS ---
Flows: FEV1: 101 % of predicted at 1.53 L FVC: 96 % of predicted at 1.93 L FEV1/FVC: 80 % Bronchodilator response: Absent Volumes: Total lung capacity: 85 % of predicted at 3.43 L Residual volume: 82 % of predicted at 1.50 L Slow vital capacity: 89 % of predicted at 1.93 L Expiratory reserve volume: 94 % of predicted at 0.47 L Diffusion capacity: Mildly decreased, corrects to normal after adjustment for alveolar ventilation. Impression: No obstructive or restrictive ventilatory defect. No bronchodilator response. Isolated defect in diffusion capacity suggests pulmonary edema. Clinical correlation is advised. MTDD
[2024-09-12 10:32] VITALS: PULSE 69
== END 2024-09-12 09:38 | disposition home or self-care (01) ==
LOC: HO.RESP 09:37
PROVIDERS: PCP Family Medicine; Visit Provider Student in an Organized Health Care Education/Training Program
DX: J84.9 Interstitial pulmonary disease, unspecified (principal); M05.9 Rheumatoid arthritis with rheumatoid factor, unspecified
CPT/HCPCS: 94010; 94640; 94727; 94729

== ENCOUNTER → 2024-09-12 09:41 | Outpatient (BNV) | payer OTHER, SELFPAY | PROVIDERS: PCP Family Medicine; Visit Provider Internal Medicine Pulmonary Disease | DX: J84.9 Interstitial pulmonary disease, unspecified (principal) | CPT/HCPCS: 94060; 94727; 94729 ==

== ENCOUNTER 2024-10-24 16:43 | Outpatient (REF) | payer OTHER, SELFPAY ==
--- NOTE | ~2024-10-24 | CT_ITS ---
CLINICAL HISTORY: J84.9 - Interstitial pulmonary disease, unspecified CT chest without contrast, HRCT Comparison: None available Findings: No mediastinal mass or lymphadenopathy. No cardiomegaly. [id number] calcified coronary artery disease. Normal size thoracic aorta with moderate calcified atherosclerotic disease. There is a moderate amount of predominantly subpleural honeycombing at the lung bases. Trace amount subpleural honeycombing in the left upper lobe. Clustered tree-in-bud micro nodules in the anterior segment of the right upper lobe, likely infectious/inflammatory. Mild increased subpleural reticulation and ground-glass opacity, most prominent at the lung bases. No pneumothorax or pleural effusion. No acute osseous or soft tissue abnormality. No acute pathology in the imaged portion of the upper abdomen. Small hiatal hernia. Cysts and subcentimeter low attenuating lesions which are too small to characterize in the liver. Increased attenuation in the medullary pyramids in the kidneys may indicate nephrocalcinosis. Left renal 6 mm hyperattenuating lesion, indeterminate. Colonic diverticulosis. Impression: Classic HRCT UIP pattern. This document has been electronically signed by: Radha Thakkar MD on 10/25/2024 16:33:40
== END 2024-10-24 16:44 | disposition home or self-care (01) ==
LOC: HO.CT 16:43
PROVIDERS: PCP Family Medicine; Visit Provider Student in an Organized Health Care Education/Training Program
DX: J84.9 Interstitial pulmonary disease, unspecified (principal)
CPT/HCPCS: 71250

== ENCOUNTER → 2024-10-24 16:45 | Outpatient (BNV) | payer OTHER, SELFPAY | PROVIDERS: PCP Family Medicine; Visit Provider Radiology Diagnostic Radiology | DX: J84.9 Interstitial pulmonary disease, unspecified (principal) | CPT/HCPCS: 71250 ==

== ENCOUNTER 2025-01-12 12:55 | Outpatient (AMB) | payer OTHER, SELFPAY ==
[2025-01-12 13:13] VITALS: BP 160/78; PULSE 70; O2SAT 100; BMI 23.5
--- NOTE | 2025-01-12 13:13 | MHC.OFFVIS ---
Vital Signs 01/12/25 13:13 Height 4 ft 9.4 in Weight 110 lb 2 oz BMI 23.5 BP 160/78 H Blood Pressure Location Lt brachial Position Sitting Pulse 70 Pulse Source Pulse Oximeter Pulse Oximetry (%) 100 Oxygen Delivery Method Room Air Intake Visit Reasons: ILD Allergies alendronate sodium (From Fosamax) Allergy (Intermediate, Verified 01/12/25 13:17) myalgia/joint pain pravastatin Allergy (Intermediate, Verified 01/12/25 13:17) back pain risedronate sodium (From Actonel) Allergy (Intermediate, Verified 01/12/25 13:17) myalgia/joint pain HPI HPI ILD: Details: Yg is a pleasant 84 year female, never smoker with underlying Rheumatoid Arthritis on Humira, ILD, Osteoporosis and HTN. She was referred by Rheumatology for further evaluation of ILD. Per records from prior turbine inspector she had findings suggestive of ILD in the past on CT chest from 2017 at [facility]. There was also note of improvement of ILD compared to prior scans prior to 2017, unclear if this was related to DMARD therapies or prolonged course of prednisone. These reports are not available to review today. She has been maintained on Humira since 2019, prior to that Enbrel (8867-9426 d/c d/t suboptimal effect) and Methotrexate ([id number] d/c d/t leukopenia). Patient currently denies any respiratory symptoms. She denies prior h/o asthma/COPD. She denies occupational exposures. Denies prior need for supplemental oxygen. Denies pertinent family history. She has had multiple PFT which have demonstrated decline in DLCO. Most recent PFT 08/2024 demonstrated no obstructive or restrictive ventilatory defect. No bronchodilator response. DLCO 69%, previously PFT 06/2023 DLCO 78%. [facility] Medical History Cataract fragments in both eyes following surgery Senile osteoporosis Seropositive rheumatoid arthritis Mixed hyperlipidemia ILD (interstitial lung disease) Hypertension Surgical History H/O sigmoidoscopy H/O vaginal hysterectomy Hx of colonoscopy History of carpal tunnel release Family History Mother No problems noted. Father No problems noted. Social History Household Members: Spouse Alcohol intake: current Alcohol intake frequency: does not drink Patient Tobacco Use Status: Never used Tobacco Review of Systems Const Denies chills, Denies excessive sweating, Denies fever(s), Denies headache(s) and Denies night sweats Eyes Denies dry eyes, Denies irritation and Denies itchy eyes ENT Reports Normal hearing present and Denies headache(s) Card Denies chest pain, Denies chest pain at rest, Denies chest pain with activity, Denies claudication, Denies leg edema, Denies dyspnea, Denies dyspnea on exertion, Denies orthopnea and Denies paroxysmal nocturnal dyspnea Resp Denies chest congestion, Denies cough, Denies excessive phlegm production, Denies pain on inspiration, Denies pain with cough, Denies dyspnea, Denies dyspnea on exertion, Denies stridor and Denies wheezing Musc Denies myalgias Neuro Reports Normal hearing present and Denies headache(s) Endo Denies excessive sweating Narendra/Lymph Denies lymphadenopathy Aller/Immun Denies itchy eyes, Denies seasonal rhinorrhea and Denies wheezing Physical Exam Vital Signs: Last Vital Signs Pulse 70 01/12/25 13:13 BP 160/78 H 01/12/25 13:13 Pulse Ox 100 01/12/25 13:13 Oxygen Delivery Method Room Air 01/12/25 13:13 BMI result Body Mass Index 23.5 Const General: cooperative, healthy appearing, comfortable, no acute distress, well developed and alert Orientation/consciousness: patient oriented x3 Limitations: no limitations HEENT Head: Yes normal to inspection, Yes normocephalic and Yes atraumatic Ears: hearing grossly normal bilaterally and external ears normal Eyes General: appearance normal, both eyes and all related structures Eyelids: Yes eyelids normal Sclerae: sclerae normal EOM: EOMs intact bilaterally Neck Neck: Yes normal visual inspection and Yes no lymphadenopathy Lymphatic: no lymphadenopathy noted Chest Chest palpation & inspection: normal inspection of the chest Resp Other: LLL basilar inspiratory crackles and RLL coarse inspiratory crackles 1/3 base Effort & Inspection: normal respiratory effort, able to speak in complete sentences, no audible wheezes, no cough, no stridor, not tachypneic, no tripod positioning and no use of accessory muscles Cardio Jugular venous distension: no JVD Rate: regular rate Rhythm: regular rhythm Skin Other: warm, dry General skin exam: no rashes or lesions noted Neuro General: patient oriented x3 Cranial nerves: Yes Normal hearing present Cognition (Neuro): normal cognition Gait exam (Neuro): Normal gait present Extrem General: Yes normal to inspection, Yes capillary refill normal, Yes no clubbing, cyanosis or edema and Yes no pedal edema Psych Appearance: grossly normal and well kempt Speech and movement: Normal speech and movement present and Clear speech present Affect: normal affect Attitude: cooperative Thought process: Normal thought process present Thought content: Normal thought content present Insight: Good insight present (Psych) Judgement: Good judgement present (Psych) Office Procedures 6 Minute Walk Time:: 14:15 SPO2 % at rest: 100 Pulse at rest: 70 SPO2 % during excercise: 99 Pulse during excercise: 98 SPO2 % after excercise: 100 Pulse after excercise: 80 Distance in yards walked: 75 Performance Observations:: Patient walked unassisted on level ground. Patient maintained O2 saturation of 99-100% with pulse in the 90's for the entirety of the walk. Denies shortness of breath and was able to hold a conversation while walking. [id number] - 6 Minute Walk Results Reviewed Results Reviewed: October 2016 PFT at [facility]: FEV1 99% normal, FVC 74% normal, TLC 80% normal, diffusing capacity 70% normal: Mild to moderate restrictive lung disease CT showed lower lobe interstitial changes and bronchiectasis repeat PFT 11/10: nl volumes; DLCO 74%. Repeat PFTs 06/2023. nl volumes with DLCO 78% [address] [address] [address] Scan Report Signed Patient: Yg Claire MR#: [id number] : 1940 Acct:[id number] Age/Sex: 84 / F ADM Date: 10/24/24 Loc: .CT Attending Dr: Florida Pablo MD Ordering Physician: Florida Pablo MD Date of Service: 10/24/24 Procedure(s): CT chest wo con - High Res Accession Number(s): [id number] cc: Florida Pablo MD; Blanco,Dusty DO~ Report Number: [id number]: Total DLP = 75.00 mGy-cm CLINICAL HISTORY: J84.9 - Interstitial pulmonary disease, unspecified CT chest without contrast, HRCT Comparison: None available Findings: No mediastinal mass or lymphadenopathy. No cardiomegaly. [id number] calcified coronary artery disease. Normal size thoracic aorta with moderate calcified atherosclerotic disease. There is a moderate amount of predominantly subpleural honeycombing at the lung bases. Trace amount subpleural honeycombing in the left upper lobe. Clustered tree-in-bud micro nodules in the anterior segment of the right upper lobe, likely infectious/inflammatory. Mild increased subpleural reticulation and ground-glass opacity, most prominent at the lung bases. No pneumothorax or pleural effusion. No acute osseous or soft tissue abnormality. No acute pathology in the imaged portion of the upper abdomen. Small hiatal hernia. Cysts and subcentimeter low attenuating lesions which are too small to characterize in the liver. Increased attenuation in the medullary pyramids in the kidneys may indicate nephrocalcinosis. Left renal 6 mm hyperattenuating lesion, indeterminate. Colonic diverticulosis. Impression: Classic HRCT UIP pattern. This document has been electronically signed by: Radha Thakkar MD on 10/25/2024 16:33:40 Dictated By: Radha Allen MD Signed By: <Electronically signed by Radha Allen MD in OV> 10/25/24 1634 DD/ 1633 TD/TT: 10/25/24 1633 Guard Manager: Assessment & Plan Assessment & Plan (1) ILD (interstitial lung disease): Comment: Code(s): J84.9 - Interstitial pulmonary disease, unspecified Category: Medical (2) Seropositive rheumatoid arthritis: Comment: SERO POS ccp POSITIVE On methtrexate since 2005; Enbrel added 02/26; methotrexate stopped 12/28 due to leukopenia. Enbrel stopped 12/29 - remission. Enbrel restarted 05/30 for return of synovitis from RA Humira in place of Enbrel 08/07 Code(s): M05.9 - Rheumatoid arthritis with rheumatoid factor, unspecified Category: Medical Plan Yg presents for pulmonary evaluation for known history of ILD, likely related to underlying RA, UIP pattern noted on CT. Will attempt to obtain prior records including full PFT as well as prior CT chest imaging from [facility] to compare progression. 6MWT performed and patient does not require supplemental oxygen at this time. She currently denies any respiratory symptoms and is aware to call if symptoms develop. Will also send for overnight oximetry to assess for nocturnal hypoxemia given declining DLCO. We discussed possible surveillance of ILD with CT chest and PFT in addition to monitoring symptoms, which may warrant further treatment with prednisone. All questions were answered and patient is in agreement of plan. Will follow up to review results or sooner if needed. Orders: Orders AMB 6 minute walk 01/12/25 J84.9 - Interstitial pulmonary disease, unspecified Overnight Pulse Oximetry Today R94.2 - Abnormal results of pulmonary function studies Coding Level of Care Code New Pt Level 4 (13512) Complex EM visit Add On G2211 Diagnoses ILD (interstitial lung disease) J84.9 Seropositive rheumatoid arthritis M05.9 CPT Codes Coding ([id number])
[2025-01-12 14:26] VITALS: PULSE 70; O2SAT 100
== END 2025-01-12 14:53 | disposition home or self-care (01) ==
LOC: HO.HPSW 12:56
PROVIDERS: PCP Family Medicine; Visit Provider Nurse Practitioner Family
DX: J84.9 Interstitial pulmonary disease, unspecified (principal); M05.9 Rheumatoid arthritis with rheumatoid factor, unspecified
CPT/HCPCS: 99204

== ENCOUNTER → 2025-01-12 12:55 | Outpatient (BNVA) | payer OTHER, SELFPAY | PROVIDERS: PCP Family Medicine; Visit Provider Nurse Practitioner Family | DX: J84.9 Interstitial pulmonary disease, unspecified (principal); M05.79 Rheumatoid arthritis with rheumatoid factor of multiple sites without organ or systems involvement; R94.2 Abnormal results of pulmonary function studies | CPT/HCPCS: 94618; 99202 ==

== ENCOUNTER 2025-01-16 10:05 | Outpatient (REF) | payer OTHER, SELFPAY ==
[2025-01-16 13:30] LABS: MANUAL DIFF FLAG NO
[2025-01-16 13:34] LABS: Hematocrit 36.6 % (37.0-47.0); Hemoglobin 11.4 g/dl (12.0-16.0); Imm Gran Abs Auto 0.01 X10*3/uL (0.00-0.03); Imm Gran Pct Auto 0.2 % (0.0-0.4); Lymphocytes Absolute Auto 1.3 X10*3/uL (1.2-4.9); Mean Corpuscular HGB Conc 31.1 g/dl (31.0-35.0); Mean Corpuscular Hemoglobin 29.1 pg (27.0-33.0); Mean Corpuscular Volume 93.4 fL (80.0-98.0); NRBC Abs Auto 0.000 X10*3/uL (0.0-0.012); NRBC Pct Auto 0.0 /100WBC (0.0-0.2); Platelet Count 276 X10*3/uL (160-400); Red Blood Count 3.92 X10*6/uL (4.20-5.50); White Blood Count 4.3 X10*3/uL (4.8-10.8)
[2025-01-16 13:53] LABS: Alanine Aminotransferase 13 U/L (0-31); Albumin Level 4.3 g/dL (3.5-5.0); Alkaline Phosphatase 68 U/L (39-117); Anion Gap 12 (12-20); Aspartate Amino Transferase 22 U/L (5-31); Blood Urea Nitrogen 18 mg/dL (9-16); Calcium 9.7 mg/dL (8.4-10.2); Carbon Dioxide 27 mmol/L (22-29); Chloride 105 mmol/L (96-108); Estimated Glomerular Filt Rate 52; Potassium 5.3 mmol/L (3.3-5.1); Sodium 139 mmol/L (135-145); Total Protein 8.5 g/dL (6.5-8.0)
[2025-01-17 08:16] LABS: Hepatitis A Antibody IgM 0.29 Index (0-0.79); ~Hepatitis A Antibody IgM Nonreactive (Nonreactive)
[2025-01-17 08:47] LABS: HBS Num1 2.08 mIU/mL (0-7.99); HBc Num1 10.47 S/CO (0.00-0.79); HBsAGNum1 0.31 S/CO (0.00-0.99); Hepatitis B Surface Antigen Negative (Negative); ~HepC Num1 0.11 S/CO (0.00-0.79); ~Hepatitis B Surface Antibody NONREACTIVE (Nonreactive); ~Hepatitis C Antibody Nonreactive (Nonreactive)
[2025-01-17 09:28] LABS: HBc Num2 10.29 S/CO; HBc Num3 10.92 S/CO
[2025-01-18 04:09] LABS: Hepatitis B Core Antibody IgM NON-REACTIVE (NON-REACTIVE)
[2025-01-19 06:53] LABS: TS Negative Control Passed; TS Panel A 0; TS Panel B 0; TS Positive Control Passed; TSpotTB Negative (Negative)
[2025-01-20 13:07] LABS: Vitamin D 25-OH, D2 <4 ng/mL; Vitamin D 25-OH, D3 37 ng/mL; Vitamin D 25-OH, Total 37 ng/mL (30-100)
== END 2025-01-16 10:06 | disposition home or self-care (01) ==
LOC: HO.HKASLDS 10:05
PROVIDERS: PCP Registered Nurse; Visit Provider Student in an Organized Health Care Education/Training Program
DX: Z11.1 Encounter for screening for respiratory tuberculosis (principal); M05.9 Rheumatoid arthritis with rheumatoid factor, unspecified; E55.9 Vitamin D deficiency, unspecified
CPT/HCPCS: 36415; 80053; 82306; 85025; 85652; 86140; 86481; 86704; 86705; 86706; 86709; 86803; 87340

== ENCOUNTER 2025-01-26 09:42 | Outpatient (AMB) | payer OTHER, SELFPAY ==
--- NOTE | 2025-01-26 09:52 | A.OFFVIS_ITS ---
Vital Signs 01/26/25 10:08 Height 4 ft 9.4 in Weight 109 lb 12.643 oz BMI 23.4 BP 150/80 H Blood Pressure Location Rt brachial Position Sitting Pulse 72 Pulse Source Pulse Oximeter Pulse Oximetry (%) 98 Oxygen Delivery Method Room Air Intake Visit Reasons: f/u RA, f/u osteoporosis on prolia Intake Note: Patient presents for RA/Osteoporosis and Prolia injection follow up. Allergies alendronate sodium (From Fosamax) Allergy (Intermediate, Verified 01/26/25 10:05) myalgia/joint pain pravastatin Allergy (Intermediate, Verified 01/26/25 10:05) back pain risedronate sodium (From Actonel) Allergy (Intermediate, Verified 01/26/25 10:05) myalgia/joint pain HPI Comments Details: Patient is an 84-year-old female hyperlipidemia, hypertension, ILD, osteoporosis and seropositive rheumatoid arthritis here today for follow up Interval History: Patient last seen 07/25/24 with fl - On Humira 40mg SC every 2 weeks and Prolia 60mg SC every 6 months - DOing well - Received Prolia - No changes to medications Today - On Humira 40mg SC every 2 weeks and Prolia 60mg SC every 6 months - Had CT 12/2024 which showed slight progression of ILD - Referred to pulm, no chnages to medications at this time - No new complaints, patient stable Rheumatologic History: SERO POS ccp POSITIVE On methtrexate since 2005; Enbrel added 02/26; methotrexate stopped 12/28 due to leukopenia. Enbrel stopped 12/29 - remission. Enbrel restarted 05/30 for return of synovitis from RA Humira in place of Enbrel 08/07 Current Rheumatology Medication(s): Humira 40mg SC every 2 weeks Prolia 60mg every 6 months PFS Medical History Cataract fragments in both eyes following surgery Senile osteoporosis Seropositive rheumatoid arthritis Mixed hyperlipidemia ILD (interstitial lung disease) Hypertension Surgical History H/O sigmoidoscopy H/O vaginal hysterectomy Hx of colonoscopy History of carpal tunnel release Family History Mother No problems noted. Father No problems noted. Social History Household Members: Spouse Alcohol intake: current Alcohol intake frequency: does not drink Patient Tobacco Use Status: Never used Tobacco Physical Exam Exam Exam: Vital signs reviewed Physical Examination CONSTITUITIONAL Patient alert and cooperative. Well appearing and in no apparent painful distress MSK Hands * Right Hand: Able to make a fist. No swelling or tenderness to palpation of the MCPs, PIPs or DIPs. * Left Hand: Able to make a fist. No swelling or tenderness to palpation of the MCPs, PIPs or DIPs. * Herbedens nodes noted bilaterally, with ulnar deviation at the levle of the PIP of the 3rd digit * Bilateral Z deformity R>L Wrists * Right Wrist: No swelling or TTP * Left Wrist: No swelling or TTP * Decreased ROM bilaterally Elbows * Right Elbow: Full ROM. No swelling or TTP. No TTP of the medial epicondyle. No TTP of the lateral epicondyle * Left Elbow: Full ROM. No swelling or TTP. No TTP of the medial epicondyle. No TTP of the lateral epicondyle Shoulders * Right shoulder: Full ROM. No swelling noted. No TTP of the AC joint. No TTP of the subacromial bursa. No TTP of the posterior shoulder * Left shoulder: Full ROM. No swelling noted. No TTP of the AC joint. No TTP of the subacromial bursa. No TTP of the posterior shoulder Knees * Right knee: Good ROM. No swelling noted. No TTP of the knee joint line. No TTP of pes anserine bursa * Left knee: Good ROM. No swelling noted. No TTP of the knee joint line. No TTP of pes anserine bursa. * Crepitations felt bilaterally Ankles * Right ankle: Good ankle dorsiflexion and plantar flexion. No swelling. No TTP of the ankle joint * Left ankle: Good ankle dorsiflexion and plantar flexion. No swelling. No TTP of the ankle joint Feet * Right foot: Negative squeeze test * Left foot: Negative squeeze test Tender points? * No tenderness to palpation of the bilateral trapezius, supraspinatus, anterior costochondral junctions, bilateral suboccipital muscle insertions SKIN No rashes Vital Signs: Last Vital Signs Pulse 72 01/26/25 10:08 BP 150/80 H 11/07/25 10:08 Pulse Ox 98 01/26/25 10:08 Oxygen Delivery Method Room Air 01/26/25 10:08 BMI result Body Mass Index 23.4 Office Meds Prolia 60 mg/mL subcutaneous syringe Performing Provider: Folrida Pablo MD Performing Location: [facility] Administered by: Gila Grimm RN on 01/26/25 10:35 Dose Route Admin Location Dispensed Lot Number Expiration Date [employer] 60 mg subcut left posterior arm 1 mL [id number] 05/20/27 26578-778-53 [employer] Total Dispensed Waste 1 mL 0 % Results Reviewed Results Reviewed: Laboratory Tests 07/21/24 01/16/25 11:11 10:13 WBC 4.3 L RBC 3.92 L Hgb 11.4 L Hct 36.6 L Plt Count 276 ESR 58 H 58 H Sodium 139 Potassium 5.3 H D Chloride 105 Carbon Dioxide 27 BUN 18 H Creatinine 1.02 AST 22 ALT 13 C-Reactive Protein 0.12 25-OH Vitamin D Total 37 Laboratory Tests 01/16/25 10:13 Hepatitis A IgM Ab Nonreactive Hep Bs Antigen Negative Hep Bs Antibody NONREACTIVE Hep B Core Total Ab Reactive Hep B Core IgM Ab NON-REACTIVE Hepatitis C Ab (EIA) Nonreactive TB Test (T-Spot) Com Negative DEXA 07/2024 FINDINGS: The bone mineral density of the lumbar spine is 0.981, corresponding to a T-score of -1.5, and a Z-score of 0.9. This is indicative of osteopenia. This represents a BMD change of 4.7% compared to the prior exam. This is not statistically significant. The bone mineral density of the left total hip is 0.692, corresponding to a T-score of -2.5, and a Z-score of 0.1. This is indicative of osteoporosis. This represents a BMD change of 9.1% compared to the prior exam. This is statistically significant. The bone mineral density of the left femoral neck is 0.559, corresponding to a T-score of -3.4, and a Z-score of -0.7. This is indicative of osteoporosis. This represents a BMD change of 2.0% compared to the prior exam. FRACTURE RISK: The FRAX index suggests a ten year probability of major osteoporotic fracture of 245%, and of hip fracture 11.5%. CT Chest 12/2024 Findings: No mediastinal mass or lymphadenopathy. No cardiomegaly. Fuye-lo-jtwywxko calcified coronary artery disease. Normal size thoracic aorta with moderate calcified atherosclerotic disease. There is a moderate amount of predominantly subpleural honeycombing at the lung bases. Trace amount subpleural honeycombing in the left upper lobe. Clustered tree-in-bud micro nodules in the anterior segment of the right upper lobe, likely infectious/inflammatory. Mild increased subpleural reticulation and ground-glass opacity, most prominent at the lung bases. No pneumothorax or pleural effusion. No acute osseous or soft tissue abnormality. No acute pathology in the imaged portion of the upper abdomen. Small hiatal hernia. Cysts and subcentimeter low attenuating lesions which are too small to characterize in the liver. Increased attenuation in the medullary pyramids in the kidneys may indicate nephrocalcinosis. Left renal 6 mm hyperattenuating lesion, indeterminate. Colonic diverticulosis. Impression: Classic HRCT UIP pattern. Assessment & Plan Assessment & Plan (1) Seropositive rheumatoid arthritis: Comment: SERO POS ccp POSITIVE On methtrexate since 2005; Enbrel added 02/26; methotrexate stopped 12/28 due to leukopenia. Enbrel stopped 12/29 - remission. Enbrel restarted 05/30 for return of synovitis from RA Humira in place of Enbrel 08/07 Code(s): M05.9 - Rheumatoid arthritis with rheumatoid factor, unspecified Category: Medical Plan: #Seropositive erosive RA Patient is an 84-year-old female with seropositive erosive and deforming rheumatoid arthritis here today for follow up. Currently in remission on Humira. Plan - Humira 40mg SC every 2 weeks - RTC 6 months - Labs before visit: CBC, CMP, ESR, CRP, vitamin D (2) ILD (interstitial lung disease): Comment: Code(s): J84.9 - Interstitial pulmonary disease, unspecified Category: Medical Plan: #ILD Followed up with pulm, no recent worsening shortness of breath Plan - F/u pulm recs (3) Senile osteoporosis: Comment: INTOLERANT OF Fosamax and Actonel: bone pain Miacalcin: nosebleeds and dizzyness On vitamin D supplements July 2018 DEXA showed slight improvement in the LS spine density and slight but not significant worsening at the hip. T-scores: -2.9 at hip, -1.2 at LS spine 2022 DEXA hip -3.0, LS spine -1.9, L fem neck -3.5 07/02/22, Prolia started Code(s): M81.0 - Age-related osteoporosis without current pathological fracture Category: Medical Plan: #Osteoporosis Patient with osteoporosis currently on Prolia. Vitamin-D at goal Plan - Continue vit D supplementation - Prolia every 6 months (4) Encounter for monitoring of adalimumab therapy: Code(s): Z51.81 - Encounter for therapeutic drug level monitoring; Z79.620 - terminal operator (current) use of immunosuppressive biologic Plan: #Long-term Use of TNF Inhibitors: Humira Discussed with the patient the benefits and risks of TNF inhibitors for the management of the rheumatic condition Benefits include reduce pain, maintenance of remission and reduction of flares as well as ?progression of the disease Risks include injection sites/infusion reactions, serious infections (such as bacterial infections, opportunistic infections), malignancy, delaminating syndromes, autoimmune phenomena, CHF exacerbations, palmar plantar psoriasis and cytopenias Recommended rotating injection sites, and holding medication during and for up to 1 week after resolution of a febrile illness or open skin wound (5) Encounter for monitoring denosumab therapy: Code(s): Z51.81 - Encounter for therapeutic drug level monitoring; Z79.899 - Other fdc (current) drug therapy Plan: #Long-term use of Denosumab Discussed with patient the risks and benefits of denosumab (Prolia) for the management of their osteoporosis Benefits include improved bone density, decreased fracture risk Risks include rapid bone loss if denosumab stopped, osteonecrosis of the jaw especially in patients with poor oral hygiene/diabetes/use of glucocorticoids/age greater than 65 years, atypical femoral fractures, injection site reactions. Mild increased risk of infections due to RANKL on T helper cells, increased risk of hypocalcemia especially in CKD patients Keep vitamin-D at least 35 ng/mL Advised to delay non emergent dental procedures to toward the end of the 6 month cycle and if they plan to stop denosumab would need to continue antiresorptive to maintain the effects of denosumabe Plan I spent 30 minutes reviewing the record and labs, taking a history, examining the patient, discussing the treatment plan, ordering diagnostic work up and documenting in the medical record Orders: Orders AMB Denosumab Injection Patient Supplied Today M81.0 - Age-related osteoporosis without current pathological fracture Coding Level of Care Code Est Pt Level 4 (39241) Complex EM visit Add On G2211 Diagnoses Seropositive rheumatoid arthritis M05.9 ILD (interstitial lung disease) J84.9 Senile osteoporosis M81.0 Encounter for monitoring of adalimumab therapy Z51.81; Z79.620 Encounter for monitoring denosumab therapy Z51.81; Z79.899
[2025-01-26 10:08] VITALS: BP 150/80; PULSE 72; O2SAT 98; BMI 23.4
== END 2025-01-26 10:49 | disposition home or self-care (01) ==
LOC: HO.RHES 09:42
PROVIDERS: PCP Registered Nurse; Visit Provider Student in an Organized Health Care Education/Training Program
DX: M05.9 Rheumatoid arthritis with rheumatoid factor, unspecified (principal); J84.9 Interstitial pulmonary disease, unspecified; M81.0 Age-related osteoporosis without current pathological fracture; Z51.81 Encounter for therapeutic drug level monitoring; Z79.620 Long term (current) use of immunosuppressive biologic; Z79.899 Other long term (current) drug therapy
CPT/HCPCS: 99214

== ENCOUNTER → 2025-01-26 09:42 | Outpatient (BNVA) | payer OTHER, SELFPAY | PROVIDERS: PCP Registered Nurse; Visit Provider Student in an Organized Health Care Education/Training Program | DX: M05.9 Rheumatoid arthritis with rheumatoid factor, unspecified (principal); E55.9 Vitamin D deficiency, unspecified; M81.0 Age-related osteoporosis without current pathological fracture; J84.9 Interstitial pulmonary disease, unspecified; Z79.899 Other long term (current) drug therapy; Z79.620 Long term (current) use of immunosuppressive biologic | CPT/HCPCS: 96372; 99212; J0897 ==